=== PATIENT | female | born 1985 | race Caucasian/White ===

== ENCOUNTER 2020-08-08 14:01 | Outpatient (REF) | payer OTHER, BC, SELFPAY ==
--- NOTE | 2020-08-11 11:28 | MHC.AU.P13 ---
Adult Audiological Evaluation Date of Visit: 08/08/20 Reason for Appointment: History of childhood-onset hearing loss, diagnosed at 5 years old. Patient questions if there has been a change in hearing, as she has been routinely turning the volume up to the maximum on her hearing aids. Previous Hearing Test Results: At this clinic on 12/24/2016: Right- Mild sloping to profound sensorineural hearing loss Left- Mild sloping to severe and rising to moderate sensorinerual hearing loss Ear History: Ear Deformity: None Reported Recent Ear Pain: None Reported Family History of Hearing Loss?: Yes Recent Ear Infections: None Reported Hearing Instrument History- Right Ear: Screen Printing Loader Unloader: [employer] Model: AudeEt3arraf M70-13T Serial Number: [id number] Battery Size: 13 Warranty: 04/14/2020 Hearing Instrument History- Left Ear: Screen Printing Loader Unloader: Phonak Model: [employer] M70-13T Serial Number: [id number] Battery Size: 13 Warranty: 04/14/2020 Otoscopy: Right Ear: Unremarkable Left Ear: Unremarkable Tympanometry: Right Ear: Reduced Middle Ear Compliance (Type As) Left Ear: Normal Middle Ear System (Type A) Hearing Evaluation: Transducer(s) Used: Insert Earphones Method: Conventional Audiometry Stimuli Used: Pure Tones Right Ear: Description of Hearing: Mild sloping to profound sensorineural hearing loss Left Ear: Description of Hearing: Moderate sloping to severe and rising to moderate sensorinerual hearing loss Speech Recognition Threshold (SRT): Method Used: Recorded Lists Stimuli Used: Spondee Words Right Ear: 70 dBHL Left Ear: 55 dBHL Word Discrimination: Method: Recorded Lists Word Lists Used: NU-6 Right Ear: 44% at 85 dBHL Left Ear: 88% at 80 dBHL Most Comfortable Level (MCL): Right Ear: 85 dBHL Left Ear: 80 dBHL Comparison: Compared to the most recent evaluation: Thresholds have decreased in the right ear Recommendations: Recommendations: Audiological re-evaluation in one year. See Hearing Aid Evaluation report for more information. Diagnosis: Primary Diagnosis: H90.3 Bilateral Sensorineural Hearing Loss Secondary Diagnosis: N/A Services Performed: Services Performed: Comprehensive Audiological Evaluation (CPT 78727) Tympanometry (CPT 48297) Signature: Student/Clinical Fellow: No I have reviewed/agreed with student/fellow documentation: N/A Provider: Claytno Verdugo, CCC-A
--- NOTE | 2020-08-11 11:40 | MHC.AU.P13 ---
Hearing Aid Evaluation- Binaural Date of Visit: 08/08/20 Description of Hearing: Right: Mild sloping to profound sensorineural hearing loss Left: Moderate sloping to severe and rising to moderate sensorineural hearing loss Summary: Patient is a client of [facility]. Patient reports that she has been turning up the volume to the maximum on her current hearing aids every day. The results of today's test indicate that she has had a change in hearing. Her current hearing aids can no longer provide enough gain. New hearing aid options were discussed. Patient works in the mental health field. Patient reports that she uses the T coil for the phone at work, and would like that to still be in the new hearing aids. While she was here, slim tubes on her current hearing aids were replaced, and the programming was updated with today's results. She reports that the T coil seems to disconnect/reconnect frequently. Provided her magnets to try on the phone at work to see if it boosts the signal. Hearing Instrument Selection: Right Ear: Oyster Washer: [employer] Model: Ob Hospitalist Groupeo M70-13T Battery Size: 13 Color: P4 Snow Technician: 2P Type of Mold: Slim Tip Left Ear: Oyster Washer: Phonak Model: Ob Hospitalist Groupeo M70-13T Battery Size: 13 Color: P4 Snow Technician: 2P Type of Mold: Slim Tip Recommendations: Quote will be sent to [facility] [place] [facility]. If approved, materials will be ordered and patient will be contacted to schedule a hearing aid fitting. Diagnosis Code(s): Primary Diagnosis: H90.3 Bilateral Sensorineural Hearing Loss Services Performed: Hearing Aid Evaluation and Earmold: Hearing Aid Evaluation- Binaural Signature: Provider: Clayton Verdugo CCC-A
--- NOTE | 2020-08-11 12:34 | MHC.AU.P13 ---
Adult Audiological Evaluation Date of Visit: 08/08/20 Reason for Appointment: History of childhood-onset hearing loss, diagnosed at 5 years old. Patient questions if there has been a change in hearing, as she has been routinely turning the volume up to the maximum on her hearing aids. Previous Hearing Test Results: At this clinic on 12/24/2016: Right- Mild sloping to profound sensorineural hearing loss Left- Mild sloping to severe and rising to moderate sensorinerual hearing loss Ear History: Ear Deformity: None Reported Recent Ear Pain: None Reported Family History of Hearing Loss?: Yes Recent Ear Infections: None Reported Hearing Instrument History- Right Ear: Bolt Sorter: [employer] Model: [employer] B90-SP Serial Number: [id number] Battery Size: 13 Warranty: 04/14/2020 Service Plan: Hearing Instrument History- Left Ear: Bolt Sorter: Ipselexak Model: [employer] B90-SP Serial Number: [id number] Battery Size: 13 Warranty: 04/14/2020 Otoscopy: Right Ear: Unremarkable Left Ear: Unremarkable Tympanometry: Right Ear: Reduced Middle Ear Compliance (Type As) Left Ear: Normal Middle Ear System (Type A) Hearing Evaluation: Transducer(s) Used: Insert Earphones Method: Conventional Audiometry Stimuli Used: Pure Tones Right Ear: Description of Hearing: Mild sloping to profound sensorineural hearing loss Left Ear: Description of Hearing: Moderate sloping to severe and rising to moderate sensorinerual hearing loss Speech Recognition Threshold (SRT): Method Used: Recorded Lists Stimuli Used: Spondee Words Right Ear: 70 dBHL Left Ear: 55 dBHL Word Discrimination: Method: Recorded Lists Word Lists Used: NU-6 Right Ear: 44% at 85 dBHL Left Ear: 88% at 80 dBHL Most Comfortable Level (MCL): Right Ear: 85 dBHL Left Ear: 80 dBHL Comparison: Compared to the most recent evaluation: Thesholds have decreased in the right ear Recommendations: Recommendations: Audiological re-evaluation in one year. See Hearing Aid Evaluation report for more information. Diagnosis: Primary Diagnosis: H90.3 Bilateral Sensorineural Hearing Loss Services Performed: Services Performed: Comprehensive Audiological Evaluation (CPT 03035) Tympanometry (CPT 98921) Signature: Provider: Clayton Verdugo, CCC-A
== END 2020-08-08 14:02 | disposition home or self-care (01) ==
LOC: HO.SH 14:01
PROVIDERS: PCP Family Medicine; Visit Provider Family Medicine
DX: H90.3 Sensorineural hearing loss, bilateral (principal)
CPT/HCPCS: 92557; 92567; 92591

== ENCOUNTER 2020-11-18 08:16 | Outpatient (REF) | payer OTHER, SELFPAY ==
--- NOTE | 2020-11-23 09:35 | MHC.AU.P13 ---
Hearing Instrument Fitting- Adult- Binaural Date of Visit: 11/18/20 Hearing Instruments Dispensed: Right Ear: Tactical Air Defense Controller: Phonak Model: [employer]Med[employer]areeo M70-13T Serial Number: [id number] Repair Warranty: 11/21/2023 Loss and Damage Warranty: 11/21/2023 Battery Size: 13 Color: P4 Dietary Internship: 2P Type of Mold: Slim Tip Type of Wax Guard: Cerustop Left Ear: Tactical Air Defense Controller: Phonak Model: Audeo M70-13T Serial Number: [id number] RepairWarranty: 11/21/2023 Loss and Damage Warranty: 11/21/2023 Battery Size: 13 Color: P4 Dietary Internship: 2P Type of Mold: Slim Tip Type of Wax Guard: Cerustop Summary of Fitting: Feedback government program manager was run. Verifit performed. Target set at 110% at patient request. Patient feels the left hearing aid sounds muffled and not as loud as the right side. The left slim tip is quite long and curved. It is possible that it is directing sound against the canal wall. New impression was taken for the left ear and sent to [employer] for remake. Hearing aid care and maintenance discussed and practiced. Hearing aids were paired to patient's phone. Recommendations: Patient will be contacted for follow-up when the remade left slim tip has arrived. Diagnosis Code(s): Primary Diagnosis: H90.3 Bilateral Sensorineural Hearing Loss Signature: Provider: Clayton Verdugo, MALOU-A
== END 2020-11-18 08:17 | disposition home or self-care (01) ==
LOC: HO.HAP 08:16
PROVIDERS: Visit Provider Family Medicine
DX: Z46.1 Encounter for fitting and adjustment of hearing aid (principal); H90.3 Sensorineural hearing loss, bilateral
CPT/HCPCS: 92595; V5011; V5020; V5160; V5261; V5264; V5275

== ENCOUNTER 2021-01-04 15:31 | Outpatient (REF) | payer SELFPAY | END 2021-01-04 15:32 | disposition home or self-care (01) | LOC: HO.HAP 15:31 | PROVIDERS: Visit Provider Family Medicine | DX: Z13.89 Encounter for screening for other disorder (principal) ==

== ENCOUNTER 2021-01-25 05:36 | Emergency (ER) | payer BC, SELFPAY ==
--- NOTE | 2021-01-25 06:46 | ED.GENADULT ---
HPI - General Adult General Chief complaint: Headache Stated complaint: Migraine headache Time Seen by Provider: 01/25/21 06:27 Source: patient Mode of arrival: ambulatory Limitations: no limitations History of Present Illness HPI narrative: 35-year-old female who presents emergency department for evaluation of migraine headache. The patient states that she gets 1-2 migraines every 2 months. She states that around 9:00 p.m. last night she had a sudden onset of left-sided headache. She describes the sensation as if someone is pounding nails and the left side of her head. The pain is constant and is 10/10. The pain is associated with nausea, lightheadedness and shortness of breath. The patient has had multiple episodes of vomiting and states she has been vomiting every 20 minutes has not been able to hold down any food or fluid. She states that she normally uses Imitrex for her migraines but only gets 2 doses per month and used both of her doses already this month. She denied fever, chills, chest pain, abdominal pain, change in her bowel movements, frequency, urgency or dysuria. The patient has completed 2 doses of the Moderna COVID 19 vaccine with her last vaccine dose on January 11, 2021. Related Data Previous Rx's Medication Instructions Recorded metoclopramide HCl [Reglan] 10 mg PO Q6H PRN #14 tab 01/25/21 Allergies Allergy/AdvReac Type Severity Reaction Status Date / Time walnut Allergy Severe ANAPHYLAXIS Unverified 06/30/20 18:23 latex [LATEX] Allergy Mild RASH Unverified 06/30/20 18:23 prochlorperazine AdvReac Mild ANXIETY Unverified 06/30/20 18:23 [From COMPAZINE] Review of Systems Review of Systems: Yes all other systems are reviewed and are negative [facility] Past Medical History Attestation statement: The following information was validated with the patient. [facility] Narrative: Patient has a history of asthma, migraine headaches and hearing impairment. She is a former smoker wound stop smoking 1 year prior. She smoked for 5 years. She occasionally drinks alcohol. She occasionally uses marijuana. Social History Social History Smoking Status: Former smoker Use of substances other than those prescribed or required for medical reasons: No Advance Directives: No Physical Exam Vital Signs: Vital Signs: Last Vital Signs Temp 98.1 F 01/25/21 06:56 Pulse 60 01/25/21 09:35 Resp 18 01/25/21 09:35 BP 108/62 01/25/21 09:35 Pulse Ox 98 01/25/21 09:35 Body Mass Index 25.0 Const: General: cooperative, healthy appearing and in distress (Patient is dry heaving, in [id number] distress secondary to her heada) Orientation/consciousness: oriented to person and oriented to place Limitations: no limitations HENMT: Head: Yes normal to inspection, Yes normocephalic and Yes atraumatic Ears: external ears normal General nose exam: Normal external nose present Face and sinus: Yes normal facial exam Mouth: Normal oral and palatal mucosa present Throat: Yes posterior oropharynx normal Eyes: Periorbital: periorbital findings normal Eyelids: Yes eyelids normal Conjunctivae: conjunctivae normal Sclerae: sclerae normal Corneas: corneas normal Pupils: Equal, round and reactive pupils present Direct Ophthalmoscopy: normal light reflex Neck: Neck: Yes full ROM, Yes no lymphadenopathy, Yes no meningeal signs, Yes trachea midline and Yes supple Chest: Chest palpation & inspection: normal inspection of the chest and tenderness sternum (Moderate) Resp: Effort & Inspection: normal respiratory effort and able to speak in complete sentences Auscultation: clear to auscultation bilaterally Cardio: Rate: regular rate Rhythm: regular rhythm Heart sounds: S1 normal heart sound present, S2 normal heart sound present and no murmurs GI: Inspection: Yes normal to inspection Palpation (GI): Soft to palpation, nontender, no guarding, not rigid and No hepatosplenomegaly present : General: Yes no CVA tenderness Back/Spine/Pelvis: Back: no CVA tenderness Cervical Spine: normal cervical lordosis Thoracic/Lumbar Spine: thoracic and lumbar spine normal to inspection Skin: Lesions: no lesions Rashes: no rashes Wounds: no wounds Neuro: General: oriented to person, oriented to place and no meningeal signs Cranial nerves: Yes CN's II-XII intact bilaterally and Yes Equal, round and reactive pupils present Cognition (Neuro): normal cognition Motor exam (neuro): 5/5 motor strength present throughout Extrem: General: Yes normal to inspection and Yes full ROM Psych: Appearance: well kempt Mental Status: mental status grossly normal Speech and movement: Normal speech and movement present Affect: normal affect Attitude: cooperative Thought process: Normal thought process present Thought content: Normal thought content present Course Course Course Narrative: 35-year-old female with a history of migraine headaches who presents emergency department for evaluation of a migraine that began last night at 9:00 p.m.. The patient's examination was unremarkable. The patient was ordered to get Imitrex 6 mg IM, Reglan and 10 mg IV and Benadryl 50 mg IV. The patient had minimal relief with these medications and required a dose of morphine 4 mg IV. Patient states she is feeling significantly better. Patient will be discharged home with a prescription for Reglan and 10 mg every 6-8 hours as needed for nausea or vomiting. She was advised to follow-up with Dr. pruitt for symptoms get worse. Discharge Plan Discharge Clinical Impression: Migraine Qualifiers: Migraine type: without aura Status migrainosus presence: without status migrainosus Intractability: not intractable Qualified Code(s): G43.009 - Migraine without aura, not intractable, without status migrainosus Nausea & vomiting Qualifiers: Vomiting type: unspecified Vomiting Intractability: non-intractable Qualified Code(s): R11.2 - Nausea with vomiting, unspecified Patient Disposition: Home, Self-Care Instructions: Migraine Headache (ED) Additional Instructions: You received Reglan, Benadryl, Imitrex and morphine here in the emergency department. For your migraine headaches, nausea and vomiting take Reglan (metoclopramide) 10 mg pills, 1 pill every 6-8 hours as needed. When you take this medication you should also take Benadryl 25 mg pills, 2 pills. These medications will make you sleepy. Do not drive or work when you take these medications. You should try to lie down in a dark quiet room to see if this helps relieve your migraine headaches. Follow-up with your doctor in 2 days. Please return to the emergency department if your symptoms get worse or if you develop any symptoms that are concerning to you. Prescriptions: New metoclopramide HCl [Reglan] 10 mg tablet 10 mg PO Q6H PRN (Reason: nausea and vomiting) Qty: 14 RF: 0
[2021-01-25 06:56] VITALS: BP 152/99; PULSE 68; RESP 16; TEMP 36.7; O2SAT 98; BMI 25.0
[2021-01-25] MEDS: Metoclopramide HCl 10 MG/2 ML VIAL IVPUSH (07:31)
[2021-01-25] MEDS: 0.9 % Sodium Chloride 1,000 ML 999 ML IV (07:32)
[2021-01-25] MEDS: diphenhydrAMINE HCL 50 MG/ML VIAL IVPUSH (07:32)
--- NOTE | 2021-01-25 08:32 | PC.NURSE ---
pt reports feeling a little better after the medication, pain at 6/10, no vomiting noticed at this time
[2021-01-25] MEDS: Morphine Sulfate 4 MG/ML CARTRIDGE IVPUSH (09:09)
[2021-01-25 09:35] VITALS: BP 108/62; PULSE 60; RESP 18; O2SAT 98
--- NOTE | 2021-01-25 09:45 | PC.NURSE ---
PT REPORTS FEELING BETTER, PAIN AT 3/10 AT THIS TIME
== END 2021-01-25 10:48 | disposition home or self-care (01) ==
PROVIDERS: Emergency Provider Emergency Medicine Emergency Medical Services; PCP Family Medicine
DX: G43.009 Migraine without aura, not intractable, without status migrainosus (principal); R11.2 Nausea with vomiting, unspecified
CPT/HCPCS: 96361; 96372; 96374; 96375; 99284; 99285; J1200; J2270; J2765; J3030

== ENCOUNTER 2022-02-28 11:05 | Outpatient (REF) | payer SELFPAY ==
--- NOTE | 2022-02-28 12:48 | MHC.AU.HFU ---
Hearing Instrument Follow-Up- Binaural Date of Visit: 02/28/22 Right Ear: Change Management Facilitator: Phonak Model: Audeo M70-13T Serial Number: [id number] Battery Size: 13 Eeg Tech: 2P Dispensed By: [facility] Left Ear: Change Management Facilitator: Phonak Model: Audeo M70-13T Serial Number: [id number] Battery Size: 13 Eeg Tech: 2P Dispensed By: [facility] Follow-Up Summary: Patient reports the mold on her right hearing aid is broken. There is a large piece missing, which is causing discomfort and feedback. Hearing aids and molds were inspected. It was discovered that there is also a small piece broken off the left mold. The hearing aids are otherwise working well. Discussed options, which included getting a copy of her current molds from [employer], or changing the type of mold. We decided on soft, silicone canal molds from [employer], as they should be more durable. Impressions were taken bilaterally without incident and will be kept in the Hold drawer. Patient reports she has been in touch with her counselor at [facility]. A pal quote for new molds will be sent to [facility]. Recommendations: Patient will be contacted to update whether or not [facility] approves new molds. Diagnosis Code(s): Primary Diagnosis: H90.3 Bilateral Sensorineural Hearing Loss Signature: Provider: Clayton Verdugo, [facility]
== END 2022-02-28 11:06 | disposition home or self-care (01) ==
LOC: HO.HAP 11:05
PROVIDERS: Visit Provider Family Medicine
DX: Z13.89 Encounter for screening for other disorder (principal)

== ENCOUNTER 2024-12-05 15:26 | Observation (INO) | payer BC, SELFPAY ==
[2024-12-05] VITALS (12 sets, daily range): BP systolic 89–140; BP diastolic 67–105; PULSE 105–224; RESP 16–22; TEMP 36.6; O2SAT 94–100; BMI 34.0
--- NOTE | ~2024-12-05 | XR_ITS ---
CLINICAL HISTORY: chest pain 1 view chest x-ray Comparison: None Findings: The lungs are clear. Heart size is normal. No acute fracture. IMPRESSION: 1. No acute findings. This document has been electronically signed by: Claudine Garcia MD on 12/05/2024 16:53:40
--- NOTE | 2024-12-05 15:28 | ECG_ITS ---
Test Reason : A FIB Blood Pressure : */* mmHG Vent. Rate : 184 BPM Atrial Rate : * BPM P-R Int : * ms QRS Dur : 70 ms QT Int : 268 ms P-R-T Axes : * 39 -42 degrees QTcB Int : 469 ms Atrial fibrillation with rapid ventricular response Nonspecific ST and T wave abnormality Abnormal ECG When compared with ECG of 04-Nov-2014 14:57, Atrial fibrillation has replaced Sinus rhythm Vent. rate has increased by 124 bpm Referred By: Shalini Lam Electronically Signed By: POORNIMA VILLATORO
--- NOTE | 2024-12-05 15:29 | ED.GENADULT ---
HPI - General Adult General Chief complaint: Arrhythmia/Palpitations Stated complaint: heart beating fast/sob Time Seen by Provider: 12/05/24 15:59 Source: patient Mode of arrival: ambulatory Limitations: no limitations History of Present Illness ED Provider: DR. Gamez HPI narrative: 39-year-old female otherwise healthy came in for evaluation of palpitation and shortness of breath. Found to be in rapid narrow complex tachycardia at 170s, patient otherwise hemodynamically stable complaining of subjective shortness of breath but no apparent respiratory distress, patient was moved to 12 was given Related Data Previous Rx's ?Medication ?Instructions ?Recorded metoclopramide HCl 10 mg tablet 10 mg PO Q6H PRN nausea and 01/25/21 (Reglan) vomiting #14 tabs Allergies Allergy/AdvReac Type Severity Reaction Status Date / Time walnut Allergy Severe ANAPHYLAXIS Verified 12/05/24 15:33 latex [LATEX] Allergy Mild RASH Verified 12/05/24 15:33 prochlorperazine AdvReac Mild ANXIETY Verified 12/05/24 15:33 [From COMPAZINE] FOR[facility]LY [facility] Social History Social History Alcohol intake: current Alcohol intake frequency: holidays/special occasions only Alcohol type: wine Smoked in Last 30 Days: Yes Substance Use Type: Marijuana Substance Use Frequency: Chronic Longstanding Last Used Substance: Just Prior to Admission Advance Directives: No Advance Directives Information Provided: Yes Do you have a plan to hurt others: No Plan Physical Exam ED Vital Signs: Vital Signs - 24 hr 12/05/24 15:30 12/05/24 15:43 12/05/24 16:29 Temperature 97.8 F Pulse Rate 105 H 224 H 176 H Pulse Rate [Monitor] Respiratory Rate 18 16 Blood Pressure 128/91 H 136/105 H 140/86 H Pulse Oximetry 94 99 Oxygen Delivery Method Room Air Room Air Oxygen Flow Rate 12/05/24 16:30 12/05/24 16:31 12/05/24 16:53 Temperature Pulse Rate 174 H 172 H 135 H Pulse Rate [Monitor] Respiratory Rate 22 H 18 Blood Pressure 140/86 H 103/78 97/67 Pulse Oximetry 98 97 Oxygen Delivery Method Nasal Cannula Nasal Cannula Oxygen Flow Rate 2 2 12/05/24 16:56 12/05/24 17:04 12/05/24 17:55 Temperature Pulse Rate 120 H 130 H 132 H Pulse Rate [Monitor] Respiratory Rate 20 16 18 Blood Pressure 89/71 L 99/79 118/90 H Pulse Oximetry 100 100 Oxygen Delivery Method Nasal Cannula Nasal Cannula Nasal Cannula Oxygen Flow Rate 2 2 2 12/05/24 18:03 12/05/24 18:43 12/05/24 19:16 Temperature Pulse Rate 146 H 157 H Pulse Rate [Monitor] 135 H Respiratory Rate 20 22 H Blood Pressure 112/71 124/77 Pulse Oximetry 99 97 Oxygen Delivery Method Nasal Cannula Room Air Oxygen Flow Rate 2 BMI result Body Mass Index 34.0 Vital signs have been reviewed and appear to be correct. Blood pressure elevated. Rapid heart rate, Respiratory rate normal. Temperature normal. Oxygen saturation normal. Appearance: Alert. Oriented X3. No acute distress. Head: Normal external exam. Normocephalic. Atraumatic. No Ocampo signs noted. No raccoon eyes noted Eyes: PERRLA. EOMI. Conjunctiva and sclera normal. Eyelids normal. ENT: TM's Normal. Pharynx normal. Uvula midline. Moist mucous membranes. No trismus noted. No drooling noted. No muffled voice noted. Neck: Normal inspection. Neck supple. FROM. No adenopathy. Thyroid Normal. No meningeal signs. No neck mass noted. CVS: Normal heart rate and rhythm. Heart sound normal. No murmurs noted. Pulses normal throughout. Respiratory: No respiratory distress. Painless inspiration. Breath sounds normal. No wheezes/rales/rhonchi noted. Chest nontender. No accessory muscle usage noted or decreased air movement noted. Abdomen: Soft and nontender. Bowel sounds normal in all 4 quadrants. No distention noted. No organomegaly noted. No visible injury noted. Back: No CVA tenderness. Full range of motion noted. Skin: Skin warm and dry. Normal skin color. Normal skin turgor. No rashes/lesions/lacerations noted. Extremities: No lower extremity edema. Extremities exhibit normal range of motion. Extremities nontender. Neuro: Oriented X 3. Cranial nerve exam: II-XII are grossly intact No motor deficit. No sensory deficit. Reflexes normal. Course Course Course Narrative: RME performed by Shalini Lam PA-C. Patient is a 39 year old assigned female at presenting to the emergency department with heart racing. Patient states her heart rate is very fast. Detailed physical exam and review of systems are deferred to the orthotic/prosthetic clinician. EKG, labs, imaging, and swabs ordered. Patient placed back in the waiting room pending room availability and results. Reevaluation(s) Reevaluation #1: New onset rapid atrial fibrillation. Initially patient had adenosine IV 6 -12-12 mg IV with transient control of heart rate. Patient was started on IV Cardizem and Cardizem drip, that was discontinued after patient started to have hypotension. Patient was given a dose of 5 mg of metoprolol IV with 1 dose of 0.25 IV digoxin. The case was discussed with Dr. Greene who recommended to give 300 mg of flecainide patient's heart rate still in the 150s otherwise blood pressure is stable, patient hemodynamically stable case discussed with Dr. Gunn who will admit the patient for further cardiology evaluation. Time: 19:36 Reevaluation #2: Patient now turn into normal sinus rhythm. Confirmed by repeat EKG. Time: 20:31 Medications Administered Generic Name Dose Route Start Last Admin Trade Name Freq PRN Reason Stop Dose Admin Diltiazem HCl 125 mg/ Sodium 125 mls @ 0 mls/hr 12/05/24 16:00 12/05/24 16:32 Chloride IVCONT 0 mg/hr .Q0M BONNIE 0 mls/hr Titration Protocol Per Protocol Discontinued Medications Generic Name Dose Route Start Last Admin Trade Name Freq PRN Reason Stop Dose Admin Adenosine 6 mg 12/05/24 15:59 12/05/24 15:45 Adenosine 6 Mg/2 Ml Vial IVPUSH 12/05/24 16:00 6 mg STAT STA Administration Adenosine 12 mg 12/05/24 15:59 12/05/24 15:45 Adenosine 6 Mg/2 Ml Vial IVPUSH 12/05/24 16:00 12 mg ONCE ONE Administration Adenosine 12 mg 12/05/24 15:59 12/05/24 16:00 Adenosine 6 Mg/2 Ml Vial IVPUSH 12/05/24 16:00 12 mg ONCE ONE Administration Digoxin 0.25 mg 12/05/24 16:35 12/05/24 16:40 Digoxin 0.5 Mg/2 Ml Ampul IVPUSH 12/05/24 16:36 0.25 mg ONCE ONE Administration Protocol Diltiazem HCl 20 mg 12/05/24 15:59 12/05/24 16:29 Diltiazem Hcl 50 Mg/10 Ml Vial IVPUSH 12/05/24 16:00 20 mg STAT STA Administration Flecainide Acetate 300 mg 12/05/24 17:04 12/05/24 18:42 Flecainide Acetate 50 Mg Tablet PO 12/05/24 17:05 300 mg ONCE ONE Administration Sodium Chloride 1,000 mls @ 999 mls/hr 12/05/24 16:36 12/05/24 17:55 Ns IV 12/05/24 17:36 Infused .Q1H1M ONE Infusion Sodium Chloride 1,000 mls @ 999 mls/hr 12/05/24 17:05 12/05/24 18:41 Ns IV 12/05/24 18:05 Not Given .Q1H1M ONE Metoprolol Tartrate 5 mg 12/05/24 16:35 12/05/24 16:40 Metoprolol Tartrate 5 Mg/5 Ml Vial IVPUSH 12/05/24 16:36 5 mg ONCE ONE Administration Protocol Medical Decision Making Differential Diagnosis Differential Diagnoses: The differential diagnosis associated with the presentation includes (SVT, narrow complex tachycardia, new onset AFib, ACS, electrolyte derangement, severe anemia, , ACS, CHF.) Admission/Observation Consideration of admission/observation: Escalation of care including admission/observation considered Consult Healthcare Provider Management of the patient was discussed with: Hospitalist (Dr. Gunn) and Compress Trucker (Dr. Greene) Lab Data MDM Lab Attestation statement: I reviewed the patient's lab results. 12/05/24 16:22 12/05/24 16:22 Labs: Lab Results 12/05/24 12/05/24 Range/Units 16:03 16:22 WBC 9.9 (4.8-10.8) X10*3/uL RBC 4.83 (4.20-5.50) X10*6/uL Hgb 15.5 (12.0-16.0) g/dl Hct 44.3 (37.0-47.0) % MCV 91.7 (80.0-98.0) fL MCH 32.1 (27.0-33.0) pg MCHC 35.0 (31.0-35.0) g/dl RDW 12.1 (11.0-16.0) % Plt Count 396 (160-400) X10*3/uL MPV 9.5 (9.4-12.3) fL Immature Gran % (Auto) 0.3 (0.0-0.4) % Neut % (Auto) 83.1 H (45-73) % Lymph % (Auto) 13.0 L (20-40) % [place] % (Auto) 2.7 (2-11) % Eos % (Auto) 0.3 (0-4) % Baso % (Auto) 0.6 (0-2) % Lymph # (Auto) 1.3 (1.2-4.9) X10*3/uL [place] # (Auto) 0.3 (0.1-1.2) X10*3/uL Eos # (Auto) 0.0 (0.0-0.4) X10*3/uL Baso # (Auto) 0.1 (0.0-0.2) X10*3/uL Abs Immat Gran (auto) 0.03 (0.00-0.03) X10*3/uL Absolute Neuts (auto) 8.2 (2.0-8.3) x10*3/uL Absolute Nucleated RBC 0.000 (0.0-0.012) X10*3/uL Nucleated RBC % (auto) 0.0 (0.0-0.2) /100WBC PT 10.7 L (10.9-12.4) SEC INR 0.9 (0.9-1.1) APTT 29.9 (26.0-36.8) SEC Sodium 139 (135-145) mmol/L Potassium 3.8 (3.3-5.1) mmol/L Chloride 104 (96-108) mmol/L Carbon Dioxide 13 L (22-29) mmol/L Anion Gap 26 H (12-20) BUN 13 (9-16) mg/dL Creatinine 0.80 (0.5-1.4) mg/dL Estim Creat Clear Calc 102.4 Estimated GFR > 60 POC Glucose 133 H (60-115) mg/dL Random Glucose 112 (60-115) mg/dL Calcium 9.4 (8.4-10.2) mg/dL Magnesium 1.7 (1.6-2.6) mg/dL Total Bilirubin 0.4 (0.0-1.0) mg/dL AST 70 H (5-31) U/L ALT 89 H (0-31) U/L Alkaline Phosphatase 70 (39-117) U/L Troponin I High Sens 15.5 (<3.5-17.0) ng/L B-Natriuretic Peptide < 10 (<100) pg/mL Total Protein 8.4 H (6.5-8.0) g/dL Albumin 4.6 (3.5-5.0) g/dL Beta HCG, Quant < 2 mIU/mL Influenza Type A (PCR) NEGATIVE (Negative) Influenza Type B (PCR) NEGATIVE (Negative) RSV RNA Qual (PCR) NEGATIVE (Negative) SARS-CoV-2 RNA (RT-PCR) NEGATIVE (Negative) Independent Interpretation I performed an independent interpretation of an: Plain X-Ray (Chest: No acute findings) Radiology Impression Discussion of test interpretation with radiology: I have reviewed the radiologist's reading. Critical Care Time Critical Care Time Critical Care Time: Yes Total Critical Care Time: 60 Attestation: The patient was critically ill with a high probability of imminent or life-threatening deterioration. I spent greater than 30 minutes of discontinuous time evaluating the patient, delivering critical care at the bedside, discussing evaluating data with consultants. Critical care time does not include time spent performing separately billable procedures or teaching. Time spent performing critical care was 60 minutes. Discharge Plan Discharge Clinical Impression: Atrial fibrillation with rapid ventricular response Patient Disposition: Admitted As Inpatient Print Language: Mexican
[2024-12-05] MEDS: Adenosine 6 MG/2 ML VIAL 12 MG IVPUSH ×2 (15:45→16:00)
[2024-12-05] MEDS: Adenosine 6 MG/2 ML VIAL IVPUSH (15:45)
[2024-12-05 16:06] LABS: Glucose, Whole Blood 133 mg/dL (60-115)
--- NOTE | 2024-12-05 16:12 | MHC.EDTECH ---
poc notified to sagar 133
[2024-12-05 16:26] LABS: MANUAL DIFF FLAG NO
[2024-12-05] MEDS: dilTIAZem HCL 50 MG/10 ML VIAL 20 MG IVPUSH (16:29)
[2024-12-05] MEDS: dilTIAZem HCL 125 MG in 0.9 % Sodium Chloride 100 ML 10 MG IVCONT (16:30)
[2024-12-05] MEDS: 0.9 % Sodium Chloride 1,000 ML 999 ML IV (16:40)
[2024-12-05] MEDS: Digoxin 0.5 MG/2 ML AMPUL 0.25 MG IVPUSH (16:40)
[2024-12-05] MEDS: Metoprolol Tartrate 5 MG/5 ML VIAL IVPUSH (16:40)
[2024-12-05 16:51] LABS: B Type Natriuretic Peptide < 10 pg/mL (<100)
[2024-12-05 16:52] LABS: Troponin-I High Sensitivity 15.5 ng/L (<3.5-17.0)
[2024-12-05 16:53] LABS: Alanine Aminotransferase 89 U/L (0-31); Albumin Level 4.6 g/dL (3.5-5.0); Alkaline Phosphatase 70 U/L (39-117); Anion Gap 26 (12-20); Aspartate Amino Transferase 70 U/L (5-31); Bilirubin Total 0.4 mg/dL (0.0-1.0); Blood Urea Nitrogen 13 mg/dL (9-16); Calcium 9.4 mg/dL (8.4-10.2); Carbon Dioxide 13 mmol/L (22-29); Chloride 104 mmol/L (96-108); Creatinine Clr Calc Pharmacy 102.4; Estimated Glomerular Filt Rate > 60; Glucose Random 112 mg/dL (60-115); HCG Quantitative < 2 mIU/mL; Magnesium 1.7 mg/dL (1.6-2.6); Potassium 3.8 mmol/L (3.3-5.1); Sodium 139 mmol/L (135-145); Total Protein 8.4 g/dL (6.5-8.0)
[2024-12-05 16:55] LABS: Basophils Absolute Auto 0.1 X10*3/uL (0.0-0.2); Basophils Percent Auto 0.6 % (0-2); Eosinophils Percent Auto 0.3 % (0-4); Hematocrit 44.3 % (37.0-47.0); Hemoglobin 15.5 g/dl (12.0-16.0); Imm Gran Abs Auto 0.03 X10*3/uL (0.00-0.03); Imm Gran Pct Auto 0.3 % (0.0-0.4); Lymphocytes Absolute Auto 1.3 X10*3/uL (1.2-4.9); Mean Corpuscular Hemoglobin 32.1 pg (27.0-33.0); Mean Corpuscular Volume 91.7 fL (80.0-98.0); Mean Platelet Volume 9.5 fL (9.4-12.3); Monocytes Absolute Auto 0.3 X10*3/uL (0.1-1.2); Monocytes Percent Auto 2.7 % (2-11); Neutrophils Absolute Auto 8.2 x10*3/uL (2.0-8.3); Neutrophils Percent Auto 83.1 % (45-73); Platelet Count 396 X10*3/uL (160-400); Red Blood Count 4.83 X10*6/uL (4.20-5.50); Red Cell Distribution Width 12.1 % (11.0-16.0); White Blood Count 9.9 X10*3/uL (4.8-10.8)
[2024-12-05 17:06] LABS: INTERNATIONAL NORM RATIO 0.9 (0.9-1.1); Prothrombin Time 10.7 SEC (10.9-12.4)
[2024-12-05 17:09] LABS: Partial Thromboplastin Time 29.9 SEC (26.0-36.8)
[2024-12-05 17:12] LABS: Influenza A PCR NEGATIVE (Negative); Influenza B PCR NEGATIVE (Negative); Resp Syncy Virus RNA Qual PCR NEGATIVE (Negative); SARS COV2 PCR INHOUSE NEGATIVE (Negative)
--- NOTE | 2024-12-05 18:09 | PC.NURSE ---
Back documentation, Pt came via personal car for her heart racing, upon assessment pt HR from 130-250s pt is diaphoretic, pale, reporting SOB. MD at bedside, see mar for initial medications given, Pt HR has not respnded at this time to medications given, awaiting pharm to bring flecainide at this time, Pt BP did get soft, but has since improved with IVF. PT remains A/ox4, reporting no chest pain or palpitations at this time. She is resting comfortably, she is on O2 for comfort. Call marrufo within reach, pads remain on patient and code cart remain at bedside for precautions. Extensive education and emotional support provided to patient during and after all medication administration and following to help ease her anxiety, and allow for her to ask questions.
[2024-12-05] MEDS: Flecainide Acetate 50 MG TABLET 300 MG PO (18:42)
--- NOTE | 2024-12-05 20:47 | ECG_ITS ---
Test Reason : REPEAT Blood Pressure : */* mmHG Vent. Rate : 90 BPM Atrial Rate : 90 BPM P-R Int : 198 ms QRS Dur : 100 ms QT Int : 390 ms P-R-T Axes : 55 33 13 degrees QTcB Int : 477 ms Normal sinus rhythm Normal ECG When compared with ECG of 05-Dec-2024 15:53, Sinus rhythm has replaced Atrial fibrillation Referred By: Babak Gamez Electronically Signed By: POORNIMA VILLATORO
--- NOTE | 2024-12-05 21:35 | P.HPHOSP_ITS ---
History of Present Illness Date of Service: 12/05/24 Attending physician on admission: Jamie [facility] Chief Complaint: palpitations Patient is a 39-year-old female with a medical history significant for mild intermittent asthma and migraines, who presented to the ED due to palpitations. When she arrived to the ED her heart rate was about 130, which increased to 224 shortly after. She denies any precipitating events including any drug use or alcohol. She states that she did take a triptan tablet earlier today for her migraines but this is not new for her. She denies any recent illness. She does vape nicotine and will drink alcohol socially about 2-3 times per week. She also smokes marijuana on a regular basis. She does complain of a headache but denies any shortness of breath, nausea, vomiting, abdominal pain or urinary symptoms. She was treated with adenosine, 03/25/12, Cardizem drip but could not tolerate due to hypotension therefore was discontinued and she was given metoprolol 5 mg IV and digoxin 0.125 mg. Ultimately Cardiology recommended flecainide 300 mg. She converted back to normal sinus rhythm, we will be admitted for observation. Review of Systems 2 Constitutional: Constitutional: Denies body ache(s), Denies chills, Denies fatigue, Denies fever(s) and Reports headache(s) Eyes: Eyes: Denies change in vision and Denies photophobia ENT: Reports headache(s), Denies nasal congestion, Denies nasal discharge and Denies sore throat Cardiovascular: Cardiovascular: Denies chest pain, Reports rapid heart rate, Denies leg edema, Denies lightheadedness and Denies dyspnea Respiratory: Respiratory: Denies chest congestion, Denies cough, Denies dyspnea and Denies wheezing Gastrointestinal: Gastrointestinal: Denies diarrhea, Denies nausea and Denies vomiting Genitourinary: Genitourinary: Denies hematuria, Denies dysuria and Denies urinary urgency Musculoskeletal: Musculoskeletal: Denies myalgias Integumentary/Breasts: Skin/Breast: Denies rash Neurologic: Denies confusion and Reports headache(s) Psychiatric: Psychiatric: Denies confusion Endocrine: Endocrine: Denies fatigue Hematologic/Lymphatic: Hematologic/Lymphatic: Denies easy bleeding and Denies easy bruising Allergic/Immunologic: Allergic/Immunologic: Denies wheezing [facility] Medical History (Updated 12/05/24 @ 21:45 by Ai Frank PA-C) Mild intermittent asthma Migraines Functional capacity: independent ambulation Social History Alcohol intake: current Alcohol intake frequency: holidays/special occasions only Alcohol type: wine Smoked in Last 30 Days: Yes Substance Use Type: Marijuana Substance Use Frequency: Chronic Longstanding Last Used Substance: Just Prior to Admission Advance Directives: No Advance Directives Information Provided: Yes Do you have a plan to hurt others: No Plan Narrative: Vapes nicotine, occasional alcohol 2-3 times per week socially, smokes marijuana Meds Allergies Allergy/AdvReac Type Severity Reaction Status Date / Time walnut Allergy Severe ANAPHYLAXIS Verified 12/05/24 15:33 latex [LATEX] Allergy Mild RASH Verified 12/05/24 15:33 prochlorperazine AdvReac Mild ANXIETY Verified 12/05/24 15:33 [From COMPAZINE] Active Medications: Current Medications Diltiazem HCl 125 mg/ Sodium (Chloride) 125 mls @ 0 mls/hr IVCONT .Q0M BONNIE; Protocol Last Titration: 12/05/24 16:32 Dose: 0 mg/hr, 0 mls/hr Physical Exam 2 Vital Signs and Narrative: Vital Signs: Last Vital Signs Temp 97.8 F 12/05/24 15:30 Pulse 157 H 12/05/24 19:16 Resp 22 H 12/05/24 19:16 BP 124/77 12/05/24 19:16 Pulse Ox 97 12/05/24 19:16 O2 Del Method Room Air 12/05/24 19:16 O2 Flow Rate 2 12/05/24 18:43 BMI result Body Mass Index 34.0 General: AOx3, no acute distress Resp: CTA bilaterally CVS: S1, S2, RRR GI: +BS, NT, no distention Skin: Warm, dry Neuro: Cranial nerves II-XII grossly intact bilaterally. Motor grossly intact bilaterally Extremities: No LE edema Psych: Appropriate affect Const: General: No confusion Orientation/consciousness: No confusion Eyes: Direct Ophthalmoscopy: No photophobia Neuro: General: No confusion Results Labs 12/05/24 16:22 12/05/24 16:22 Labs: Laboratory Results - last 24 hr 12/05/24 12/05/24 16:03 16:22 MCV 91.7 MCH 32.1 MCHC 35.0 RDW 12.1 Plt Count 396 MPV 9.5 Immature Gran % (Auto) 0.3 Neut % (Auto) 83.1 H Lymph % (Auto) 13.0 L [place] % (Auto) 2.7 Eos % (Auto) 0.3 Baso % (Auto) 0.6 Lymph # (Auto) 1.3 [place] # (Auto) 0.3 Eos # (Auto) 0.0 Baso # (Auto) 0.1 Abs Immat Gran (auto) 0.03 Absolute Neuts (auto) 8.2 Absolute Nucleated RBC 0.000 Nucleated RBC % (auto) 0.0 PT 10.7 L INR 0.9 APTT 29.9 Anion Gap 26 H Estim Creat Clear Calc 102.4 Estimated GFR > 60 POC Glucose 133 H Random Glucose 112 Calcium 9.4 Magnesium 1.7 Total Bilirubin 0.4 AST 70 H ALT 89 H Alkaline Phosphatase 70 B-Natriuretic Peptide < 10 Total Protein 8.4 H Albumin 4.6 Beta HCG, Quant < 2 Influenza Type A (PCR) NEGATIVE Influenza Type B (PCR) NEGATIVE RSV RNA Qual (PCR) NEGATIVE SARS-CoV-2 RNA (RT-PCR) NEGATIVE Assessment and Plan (1) Atrial fibrillation with rapid ventricular response: Status: Acute (2) Obesity (BMI 30-39.9): Status: Chronic (3) Tobacco use disorder: Status: Chronic Plan Patient is a 39-year-old female with a medical history significant for mild intermittent asthma and migraines, who presented to the ED due to palpitations. And to be in rapid AFib with RVR with heart rate up to 220. She was treated with adenosine, 03/25/12, Cardizem drip but could not tolerate due to hypotension therefore was discontinued and she was given metoprolol 5 mg IV and digoxin 0.125 mg. Ultimately Cardiology recommended flecainide 300 mg. She converted back to normal sinus rhythm, we will be admitted for observation. rapid a fib with RVR, now converted - HR up to 220, was 130 upon arrival - treated with: adenosine, 03/25/12, Cardizem drip but could not tolerate due to hypotension therefore was discontinued and she was given metoprolol 5 mg IV and digoxin 0.125 mg, and flecanice 300mg - 2L NS in ED - admit for observation on tele - COVID/flu/RSV negative - CXR negative - no evidence of infectious process - cardiology consult mild intermittent asthma, no acute exacerbation - albuterol PRN migraines, none currently - tylenol PRN tobacco use - smoking cessation encouraged obesity - BMI 34.0 - weight loss encouraged full code VTE prophy: lovenox Patient with rapid AFib with RVR, now converted, requiring admission for observation overnight in Cardiology consultation. Quality Stroke Does the patient have a stroke diagnosis?: No VTE Prior VTE?: No VTE Risk Level:: Medical - moderate - high VTE Device Contraindication: Treatment Not Indicated VTE Drug Contraindication: N/A - Med Ordered
--- NOTE | 2024-12-05 22:30 | PC.NURSE ---
Patient is alert and oriented x4, VSS. HR 90-97, NSR. Patient denies chest pain/heart palpitations/shortness of breath. Patient currently resting in a stretcher bed, talking on her phone, call marrufo in patient's reach. Plan of care ongoing.
[2024-12-05 22:34] LABS: TSH reflex Free T4 0.37 uIU/mL (0.32-4.0)
[2024-12-05] MEDS: Enoxaparin Sodium 40 MG/0.4 ML SYRINGE SUBCUT (23:09)
[2024-12-06 00:48] LABS: Lactic Acid 0.7 mmol/L (0.5-2.0)
[2024-12-06 00:49] LABS: Anion Gap 15 (12-20); Blood Urea Nitrogen 11 mg/dL (9-16); Calcium 8.6 mg/dL (8.4-10.2); Carbon Dioxide 20 mmol/L (22-29); Chloride 103 mmol/L (96-108); Creatinine Clr Calc Pharmacy 113.8; Estimated Glomerular Filt Rate > 60; Glucose Random 80 mg/dL (60-115); Magnesium 1.7 mg/dL (1.6-2.6); Potassium 3.6 mmol/L (3.3-5.1); Sodium 134 mmol/L (135-145)
[2024-12-06 01:06] LABS: MANUAL DIFF FLAG NO
[2024-12-06 01:08] LABS: Basophils Percent Auto 0.5 % (0-2); Eosinophils Absolute Auto 0.2 X10*3/uL (0.0-0.4); Eosinophils Percent Auto 2.1 % (0-4); Hematocrit 34.9 % (37.0-47.0); Hemoglobin 12.2 g/dl (12.0-16.0); Imm Gran Abs Auto 0.02 X10*3/uL (0.00-0.03); Imm Gran Pct Auto 0.3 % (0.0-0.4); Lymphocytes Absolute Auto 2.1 X10*3/uL (1.2-4.9); Lymphocytes Percent Auto 27.5 % (20-40); Mean Corpuscular Volume 91.6 fL (80.0-98.0); Mean Platelet Volume 9.1 fL (9.4-12.3); Monocytes Absolute Auto 0.5 X10*3/uL (0.1-1.2); Monocytes Percent Auto 6.8 % (2-11); Neutrophils Absolute Auto 4.7 x10*3/uL (2.0-8.3); Neutrophils Percent Auto 62.8 % (45-73); Platelet Count 307 X10*3/uL (160-400); Red Blood Count 3.81 X10*6/uL (4.20-5.50); White Blood Count 7.6 X10*3/uL (4.8-10.8)
[2024-12-06] MEDS: LORazepam 0.5 MG TABLET PO (01:09)
[2024-12-06] MEDS: 0.9 % Sodium Chloride Flush 3 ML SYRINGE IVFLUSH (01:10)
[2024-12-06 01:11] VITALS: BP 113/76; PULSE 91; RESP 18; O2SAT 97
[2024-12-06] MEDS: Lactated Ringers 1,000 ML 150 ML IVCONT ×2 (01:27→08:28)
[2024-12-06] MEDS: Acetaminophen 325 MG TABLET 975 MG PO (04:44)
--- NOTE | 2024-12-06 07:22 | HO.PM.IMPN ---
Subjective Subjective Date of Service: 12/06/24 Interval History: 39 yo f evaluated at the bedside this AM. Feeling well. No complaints. Denies CP, SOB, fevers, chills, nausae, vomiting, abd pain, headache vision changes, dizziness, weakness. Review of Systems Review of Systems: Yes all other systems are reviewed and are negative Physical Exam Vital Signs: Vital Signs: Last Vital Signs Temp 97.8 F 12/05/24 15:30 Pulse 91 12/06/24 01:11 Resp 18 12/06/24 01:11 BP 113/76 12/06/24 01:11 Pulse Ox 97 12/06/24 01:11 O2 Del Method Room Air 12/06/24 01:11 O2 Flow Rate 2 12/05/24 18:43 BMI result Body Mass Index 34.0 Appearance: Alert.? Oriented X3.? No acute distress.? Head: Normocephalic, atraumatic, no step-offs or deformities Eyes: Pupils equal, round and reactive to light.? Neck: Normal inspection.? Neck supple.? CVS: Normal heart rate and rhythm.? Pulses normal.? Respiratory: No respiratory distress.? Breath sounds normal.? Abdomen: Soft and nontender.? Skin: Skin warm and dry.? Normal skin color.? Normal skin turgor.? Extremities: No lower extremity edema.? No calf ttp. 5/5 strength to bilateral upper and lower extremities Neuro: Oriented X 3.? No motor deficit.? No sensory deficit. CN 2-12 intact Objective Data Active Medications Acetaminophen (Acetaminophen 325 Mg Tablet) 975 mg PO Q6H PRN PRN Reason: Pain, Mild 1-3,fever,headache Last Admin: 12/06/24 04:44 Dose: 975 mg Documented By: MIGEL Calcium Carbonate (Calcium Carbonate 750 Mg Tab.Chew) 750 mg PO Q4H PRN PRN Reason: Heartburn Enoxaparin Sodium (Enoxaparin Sodium 40 Mg/0.4 Ml Syringe) 40 mg SUBCUT Q24H [facility] Last Admin: 12/05/24 23:09 Dose: 40 mg Documented By: MIGEL Diltiazem HCl 125 mg/ Sodium (Chloride) 125 mls @ 0 mls/hr IVCONT .Q0M [facility]; Protocol Last Titration: 12/05/24 16:32 Dose: 0 mg/hr, 0 mls/hr Documented By: MECCA Lactated Ringer's (Lr) 1,000 mls @ 150 mls/hr IVCONT .Q6H40M [facility] Last Admin: 12/06/24 01:27 Dose: 150 mls/hr Documented By: MIGEL Magnesium Hydroxide (Milk Of Magnesia 30 Ml Oral.Susp) 30 ml PO DAILY PRN PRN Reason: Constipation Melatonin (Melatonin 3 Mg Tablet) 6 mg PO BEDTIME PRN PRN Reason: Insomnia Nicotine Polacrilex (Nicotine Polacrilex 2 Mg Gum) 2 mg BUCCAL Q2H PRN PRN Reason: Nicotine Cravings Ondansetron HCl (Ondansetron Hcl 4 Mg/2 Ml Vial) 4 mg IVPUSH Q8H PRN PRN Reason: Nausea and Vomiting Sodium Chloride (0.9 % Sodium Chloride Flush 3 Ml Syringe) 3 ml IVFLUSH QSHIFT [facility] Last Admin: 12/06/24 01:10 Dose: 3 ml Documented By: MIGEL Labs 12/06/24 00:54 12/06/24 00:14 Labs: Laboratory Results - last 24 hr 12/05/24 12/05/24 12/06/24 16:03 16:22 00:13 MCV 91.7 MCH 32.1 MCHC 35.0 RDW 12.1 Plt Count 396 MPV 9.5 Immature Gran % (Auto) 0.3 Neut % (Auto) 83.1 H Lymph % (Auto) 13.0 L [place] % (Auto) 2.7 Eos % (Auto) 0.3 Baso % (Auto) 0.6 Lymph # (Auto) 1.3 [place] # (Auto) 0.3 Eos # (Auto) 0.0 Baso # (Auto) 0.1 Abs Immat Gran (auto) 0.03 Absolute Neuts (auto) 8.2 Absolute Nucleated RBC 0.000 Nucleated RBC % (auto) 0.0 PT 10.7 L INR 0.9 APTT 29.9 Anion Gap 26 H Cancelled Estim Creat Clear Calc 102.4 Cancelled Estimated GFR > 60 Cancelled POC Glucose 133 H Random Glucose 112 Cancelled Lactic Acid 0.7 Calcium 9.4 Cancelled Magnesium 1.7 Cancelled Total Bilirubin 0.4 AST 70 H ALT 89 H Alkaline Phosphatase 70 B-Natriuretic Peptide < 10 Total Protein 8.4 H Albumin 4.6 Beta-Hydroxybutyrate TSH 0.37 Beta HCG, Quant < 2 Influenza Type A (PCR) NEGATIVE Influenza Type B (PCR) NEGATIVE RSV RNA Qual (PCR) NEGATIVE SARS-CoV-2 RNA (RT-PCR) NEGATIVE 12/06/24 12/06/24 00:14 00:54 MCV 91.6 MCH 32.0 MCHC 35.0 RDW 12.0 Plt Count 307 MPV 9.1 L Immature Gran % (Auto) 0.3 Neut % (Auto) 62.8 Lymph % (Auto) 27.5 [place] % (Auto) 6.8 Eos % (Auto) 2.1 Baso % (Auto) 0.5 Lymph # (Auto) 2.1 [place] # (Auto) 0.5 Eos # (Auto) 0.2 Baso # (Auto) 0.0 Abs Immat Gran (auto) 0.02 Absolute Neuts (auto) 4.7 Absolute Nucleated RBC 0.000 Nucleated RBC % (auto) 0.0 PT INR APTT Anion Gap 15 Estim Creat Clear Calc 113.8 Estimated GFR > 60 POC Glucose Random Glucose 80 Lactic Acid Calcium 8.6 D Magnesium 1.7 Total Bilirubin AST ALT Alkaline Phosphatase B-Natriuretic Peptide Total Protein Albumin Beta-Hydroxybutyrate 1.30 H TSH Beta HCG, Quant Influenza Type A (PCR) Influenza Type B (PCR) RSV RNA Qual (PCR) SARS-CoV-2 RNA (RT-PCR) Assessment and Plan (1) Atrial fibrillation with rapid ventricular response: Status: Acute (2) Migraines: Status: Acute (3) Mild intermittent asthma: Status: Acute (4) Tobacco use disorder: Status: Chronic (5) Obesity (BMI 30-39.9): Status: Chronic Plan 39 year old female admitted for rapid afib w/ RVR now converted to NSR feeling well this am. No CP, SOB. No overnight events per nursing. Pending cardiology consult/input #Rapid a fib with RVR (resolved) - HR up to 220, was 130 upon arrival - treated with: adenosine, 03/25/12, Cardizem drip but could not tolerate due to hypotension therefore was discontinued and she was given metoprolol 5 mg IV and digoxin 0.125 mg, and flecanice 300mg - 2L NS in ED - admit for observation on tele - COVID/flu/RSV negative - CXR negative - no evidence of infectious process - cardiology consult- still pending #Mild intermittent asthma, no acute exacerbation - albuterol PRN #Migraines - tylenol PRN # Tobacco use disorder - smoking cessation encouraged # Obesity - BMI 34.0 - weight loss encouraged Code status: full code DVTP: lovenox Quality Stroke Does the patient have a stroke diagnosis?: No VTE Prior VTE?: No VTE Risk Level:: Medical - moderate - high VTE Device Contraindication: Treatment Not Indicated VTE Drug Contraindication: N/A - Med Ordered
--- NOTE | 2024-12-06 07:32 | PC.NURSE ---
Care of Pt assumed at change of shift. Pt is currently resting comfortably with eyes closed. NAD noted at this time Pt is awaiting transport to room 482.
[2024-12-06 08:30] VITALS: BP 121/74; PULSE 92; RESP 13; O2SAT 98
--- NOTE | 2024-12-06 09:26 | P.CONCA_ITS ---
History of Present Illness History of Present Illness Date of Service: 12/06/24 Chief complaint: new onset A fib Narrative: This is a cardiology consultation regarding atrial fibrillation. She presents to the hospital for palpitations. No recent alcohol excess. She did take a Triptan tablet for migraine but she has done that before. Came to the ER and found to be in atrial fibrillation rapid rate. Tried different medications including adenosine, diltiazem, metoprolol, digoxin and then got flecainide 300 mg daily. Converted to sinus rhythm. Overall duration of arrhythmias with a few hours. Currently, she feels okay. No other concerns like angina. No previous cardiac issues. Otherwise healthy with no major limitations. Review of Systems 2 Review of Systems: Yes all other systems are reviewed and are negative Constitutional: Constitutional: Reports as per HPI and Reports no additional constitutional complaints Eyes: Eyes: Reports as per HPI and Denies no additional eye complaints ENT: Denies system reviewed and no additional complaints, except as documented and Reports as per HPI Cardiovascular: Cardiovascular: Reports as per HPI, Reports no additional cardiovascular complaints, Denies acrocyanosis, Denies cool extremities, Denies chest pain, Denies leg edema, Denies lightheadedness, Denies palpitations and Denies dyspnea Respiratory: Respiratory: Reports as per HPI, Denies no additional respiratory complaints and Denies dyspnea Gastrointestinal: Gastrointestinal: Reports as per HPI and Denies no additional gastrointestinal complaints Genitourinary: Genitourinary: Reports as per HPI Musculoskeletal: Musculoskeletal: Reports no additional musculoskeletal complaints and Reports as per HPI Integumentary/Breasts: Skin/Breast: Reports system reviewed and no additional complaints, except as docu Neurologic: Reports system reviewed and no additional complaints, except as documented and Reports as per HPI Psychiatric: Psychiatric: Reports no additional psychiatric complaints and Reports as per HPI Endocrine: Endocrine: Reports no additional endocrine complaints, Reports as per HPI and Denies palpitations Hematologic/Lymphatic: Hematologic/Lymphatic: Reports no additional hematologic/lymphatic complaints and Reports as per HPI Allergic/Immunologic: Allergic/Immunologic: Reports no additional allergic/immunologic complaints and Reports as per HPI [facility] Past Medical History Medical History (Updated 12/05/24 @ 21:45 by Ai Frank PA-C) Mild intermittent asthma Migraines Family History Family History (Updated 12/06/24 @ 10:19 by Wilton Greene MD) Mother Atrial fibrillation Social History Social History Alcohol intake: current Alcohol intake frequency: holidays/special occasions only Alcohol type: wine Smoked in Last 30 Days: Yes Substance Use Type: Marijuana Substance Use Frequency: Chronic Longstanding Last Used Substance: Just Prior to Admission Advance Directives: No Advance Directives Information Provided: Yes Do you have a plan to hurt others: No Plan Meds Allergies Allergy/AdvReac Type Severity Reaction Status Date / Time walnut Allergy Severe ANAPHYLAXIS Verified 12/05/24 15:33 latex [LATEX] Allergy Mild RASH Verified 12/05/24 15:33 prochlorperazine AdvReac Mild ANXIETY Verified 12/05/24 15:33 [From COMPAZINE] Active Medications: Current Medications Acetaminophen (Acetaminophen 325 Mg Tablet) 975 mg PO Q6H PRN PRN Reason: Pain, Mild 1-3,fever,headache Last Admin: 12/06/24 04:44 Dose: 975 mg Calcium Carbonate (Calcium Carbonate 750 Mg Tab.Chew) 750 mg PO Q4H PRN PRN Reason: Heartburn Enoxaparin Sodium (Enoxaparin Sodium 40 Mg/0.4 Ml Syringe) 40 mg SUBCUT Q24H [facility] Last Admin: 12/05/24 23:09 Dose: 40 mg Diltiazem HCl 125 mg/ Sodium (Chloride) 125 mls @ 0 mls/hr IVCONT .Q0M [facility]; Protocol Last Titration: 12/05/24 16:32 Dose: 0 mg/hr, 0 mls/hr Lactated Ringer's (Lr) 1,000 mls @ 150 mls/hr IVCONT .Q6H40M [facility] Last Admin: 12/06/24 08:28 Dose: 150 mls/hr Magnesium Hydroxide (Milk Of Magnesia 30 Ml Oral.Susp) 30 ml PO DAILY PRN PRN Reason: Constipation Melatonin (Melatonin 3 Mg Tablet) 6 mg PO BEDTIME PRN PRN Reason: Insomnia Nicotine Polacrilex (Nicotine Polacrilex 2 Mg Gum) 2 mg BUCCAL Q2H PRN PRN Reason: Nicotine Cravings Ondansetron HCl (Ondansetron Hcl 4 Mg/2 Ml Vial) 4 mg IVPUSH Q8H PRN PRN Reason: Nausea and Vomiting Sodium Chloride (0.9 % Sodium Chloride Flush 3 Ml Syringe) 3 ml IVFLUSH QSHIFT [facility] Last Admin: 12/06/24 08:01 Dose: Not Given Home Medications ?Medication ?Instructions ?Recorded ?Confirmed ?Last Taken ?Type pimecrolimus 1 % topical cream 1 appl topical TID 12/06/24 12/06/24 12/05/24 History sumatriptan succinate 6 mg/0.5 mL 6 mg subcut QMONTH PRN Migraine 12/06/24 12/06/24 5 Weeks Ago History subcutaneous pen injector Headache ~11/01/24 triamcinolone acetonide 0.1 % 1 appl topical BID PRN eczema 12/06/24 12/06/24 2 Days Ago History topical cream ~12/04/24 zolmitriptan 5 mg tablet 5 mg PO DAILY PRN migraine 12/06/24 12/06/24 12/05/24 History Physical Exam 2 Vital Signs: Vital Signs: Last Vital Signs Temp 97.8 F 12/05/24 15:30 Pulse 92 12/06/24 08:30 Resp 13 12/06/24 08:30 BP 121/74 12/06/24 08:30 Pulse Ox 98 12/06/24 08:30 O2 Del Method Room Air 12/06/24 08:30 O2 Flow Rate 2 12/05/24 18:43 BMI result Body Mass Index 34.0 Const: General: comfortable and no acute distress O rientation/consciousness: patient oriented x3 HEENT: Other: Unremarkable Head: Yes normal to inspection Neck: Neck: Yes normal visual inspection Chest: Chest palpation & inspection: normal inspection of the chest Resp: Auscultation: clear to auscultation bilaterally Cardio: Palpation: normal PMI Heart sounds: S1 normal heart sound present, S2 normal heart sound present, no gallops, no murmurs and no rubs GI: Palpation (GI): Soft to palpation Back/Spine/Pelvis: Other: unremarkable Skin: General skin exam: no rashes or lesions noted Neuro: General: patient oriented x3 Extrem: General: Yes normal to inspection Psych: Mental Status: mental status grossly normal Objective Labs and Meds 12/06/24 00:54 12/06/24 00:14 Lab results: Laboratory Results - last 24 hr 12/05/24 12/05/24 12/06/24 16:03 16:22 00:13 WBC 9.9 RBC 4.83 Hgb 15.5 Hct 44.3 MCV 91.7 MCH 32.1 MCHC 35.0 RDW 12.1 Plt Count 396 MPV 9.5 Immature Gran % (Auto) 0.3 Neut % (Auto) 83.1 H Lymph % (Auto) 13.0 L [place] % (Auto) 2.7 Eos % (Auto) 0.3 Baso % (Auto) 0.6 Lymph # (Auto) 1.3 [place] # (Auto) 0.3 Eos # (Auto) 0.0 Baso # (Auto) 0.1 Abs Immat Gran (auto) 0.03 Absolute Neuts (auto) 8.2 Absolute Nucleated RBC 0.000 Nucleated RBC % (auto) 0.0 PT 10.7 L INR 0.9 APTT 29.9 Sodium 139 Cancelled Potassium 3.8 Cancelled Chloride 104 Cancelled Carbon Dioxide 13 L Cancelled Anion Gap 26 H Cancelled BUN 13 Cancelled Creatinine 0.80 Cancelled Estim Creat Clear Calc 102.4 Cancelled Estimated GFR > 60 Cancelled POC Glucose 133 H Random Glucose 112 Cancelled Lactic Acid 0.7 Calcium 9.4 Cancelled Magnesium 1.7 Cancelled Total Bilirubin 0.4 AST 70 H ALT 89 H Alkaline Phosphatase 70 Troponin I High Sens 15.5 B-Natriuretic Peptide < 10 Total Protein 8.4 H Albumin 4.6 Beta-Hydroxybutyrate TSH 0.37 Beta HCG, Quant < 2 Influenza Type A (PCR) NEGATIVE Influenza Type B (PCR) NEGATIVE RSV RNA Qual (PCR) NEGATIVE SARS-CoV-2 RNA (RT-PCR) NEGATIVE 12/06/24 12/06/24 00:14 00:54 WBC 7.6 RBC 3.81 L D Hgb 12.2 D Hct 34.9 L D MCV 91.6 MCH 32.0 MCHC 35.0 RDW 12.0 Plt Count 307 MPV 9.1 L Immature Gran % (Auto) 0.3 Neut % (Auto) 62.8 Lymph % (Auto) 27.5 [place] % (Auto) 6.8 Eos % (Auto) 2.1 Baso % (Auto) 0.5 Lymph # (Auto) 2.1 [place] # (Auto) 0.5 Eos # (Auto) 0.2 Baso # (Auto) 0.0 Abs Immat Gran (auto) 0.02 Absolute Neuts (auto) 4.7 Absolute Nucleated RBC 0.000 Nucleated RBC % (auto) 0.0 PT INR APTT Sodium 134 L Potassium 3.6 Chloride 103 Carbon Dioxide 20 L Anion Gap 15 BUN 11 Creatinine 0.72 Estim Creat Clear Calc 113.8 Estimated GFR > 60 POC Glucose Random Glucose 80 Lactic Acid Calcium 8.6 D Magnesium 1.7 Total Bilirubin AST ALT Alkaline Phosphatase Troponin I High Sens B-Natriuretic Peptide Total Protein Albumin Beta-Hydroxybutyrate 1.30 H TSH Beta HCG, Quant Influenza Type A (PCR) Influenza Type B (PCR) RSV RNA Qual (PCR) SARS-CoV-2 RNA (RT-PCR) ECG Interpretation: Initial EKG shows atrial fibrillation with rapid ventricular response at 184/Min with nonspecific ST-T changes. In the follow-up EKG sinus rhythm at 90/Min. Currently, sinus rhythm on telemetry. Assessment and Plan (1) Atrial fibrillation with rapid ventricular response: Status: Acute Plan Atrial fibrillation rapid response but now in sinus rhythm. Responded to flecainide 300 mg but she also got other medications including metoprolol, diltiazem, digoxin. High sensitivity troponin within range. Cardiac BNP is normal. Possibly lone atrial fibrillation. Start Toprol-XL 25 mg daily. No need for anticoagulation at this time. Outpatient echocardiogram/Holter will be arranged. Abnormal LFTs will need to be followed up through her own PCP. Follow-up will be arranged. Procedures Date of Service Date of Service: 12/06/24
--- NOTE | 2024-12-06 09:32 | P.DS_ITS ---
DS: Providers Provider Date of Service: 12/06/24 Date of admission: 12/05/24 21:45 Date of discharge: 12/06/24 Primary care physician: Unknown Physician Consults: 12/05/24 21:56 Consult to Cardiology Routine Consulting Provider: Wilton Greene Reason for consultation: new onset a fib Has provider been notified: Yes Attending physician on discharge: Tristin Zimmerman Discharging clinician: Gagan Maldonado DS: Diagnosis Discharge Diagnosis (1) Atrial fibrillation with rapid ventricular response: Status: Acute (2) Migraines: Status: Acute (3) Mild intermittent asthma: Status: Acute (4) Tobacco use disorder: Status: Chronic (5) Obesity (BMI 30-39.9): Status: Chronic DS: Summary Hospital Course Hospital Course: From H&P on date of admission: Patient is a 39-year-old female with a medical history significant for mild intermittent asthma and migraines, who presented to the ED due to palpitations. When she arrived to the ED her heart rate was about 130, which increased to 224 shortly after. She denies any precipitating events including any drug use or alcohol. She states that she did take a triptan tablet earlier today for her migraines but this is not new for her. She denies any recent illness. She does vape nicotine and will drink alcohol socially about 2-3 times per week. She also smokes marijuana on a regular basis. She does complain of a headache but denies any shortness of breath, nausea, vomiting, abdominal pain or urinary symptoms. She was treated with adenosine, 03/25/12, Cardizem drip but could not tolerate d ue to hypotension therefore was discontinued and she was given metoprolol 5 mg IV and digoxin 0.125 mg. Ultimately Cardiology recommended flecainide 300 mg. She converted back to normal sinus rhythm, we will be admitted for observation. New onset afib treated with: adenosine, 03/25/12, Cardizem drip but could not tolerate due to hypotension therefore was discontinued and she was given metoprolol 5 mg IV and digoxin 0.125 mg, and flecanice 300mg Seen by cardiology who recommends patient to be DC home on toprol XL 25 mg daily with cardiology follow up Upon my evaluation this am she is feeling well just reports shes tired and wants to sleep Time spent discussing smoking cessation with patient: more than 10 minutes Status at Discharge Cognitive/behavioral status at discharge: A&O X4 Functional status at discharge: independent ambulation Overall status at discharge: patient is back to baseline Time Attestation Total time managing care of this patient today: 35 mintues. Discharge Coordination Time (in mins): 35 Quality: Safe Use of Opioids Does Pt have an Active Cancer Diagnosis on the Problem List?: No Quality: Stroke Does the patient have a stroke diagnosis?: No Physical Exam Vital Signs: Vital Signs: Last Vital Signs Temp 97.8 F 12/05/24 15:30 Pulse 92 12/06/24 08:30 Resp 13 12/06/24 08:30 BP 121/74 12/06/24 08:30 Pulse Ox 98 12/06/24 08:30 O2 Del Method Room Air 12/06/24 08:30 O2 Flow Rate 2 12/05/24 18:43 BMI result Body Mass Index 34.0 Appearance: Alert.? Oriented X3.? No acute distress.? Head: Normocephalic, atraumatic, no step-offs or deformities Eyes: Pupils equal, round and reactive to light.? Neck: Normal inspection.? Neck supple.? CVS: Normal heart rate and rhythm.? Pulses normal.? Respiratory: No respiratory distress.? Breath sounds normal.? Abdomen: Soft and nontender.? Skin: Skin warm and dry.? Normal skin color.? Normal skin turgor.? Extremities: No lower extremity edema.? No calf ttp. 5/5 strength to bilateral upper and lower extremities Back: No midline tenderness, no C-spine tenderness, full range of motion, no CVA tenderness bilaterally Neuro: Oriented X 3.? No motor deficit.? No sensory deficit. CN 2-12 intact DS: Data Data Completed and Pending Labs on day of discharge: Laboratory Results - last 24 hr 12/05/24 12/05/24 12/06/24 16:03 16:22 00:13 WBC 9.9 RBC 4.83 Hgb 15.5 Hct 44.3 MCV 91.7 MCH 32.1 MCHC 35.0 RDW 12.1 Plt Count 396 MPV 9.5 Immature Gran % (Auto) 0.3 Neut % (Auto) 83.1 H Lymph % (Auto) 13.0 L [place] % (Auto) 2.7 Eos % (Auto) 0.3 Baso % (Auto) 0.6 Lymph # (Auto) 1.3 [place] # (Auto) 0.3 Eos # (Auto) 0.0 Baso # (Auto) 0.1 Abs Immat Gran (auto) 0.03 Absolute Neuts (auto) 8.2 Absolute Nucleated RBC 0.000 Nucleated RBC % (auto) 0.0 PT 10.7 L INR 0.9 APTT 29.9 Sodium 139 Cancelled Potassium 3.8 Cancelled Chloride 104 Cancelled Carbon Dioxide 13 L Cancelled Anion Gap 26 H Cancelled BUN 13 Cancelled Creatinine 0.80 Cancelled Estim Creat Clear Calc 102.4 Cancelled Estimated GFR > 60 Cancelled POC Glucose 133 H Random Glucose 112 Cancelled Lactic Acid 0.7 Calcium 9.4 Cancelled Magnesium 1.7 Cancelled Total Bilirubin 0.4 AST 70 H ALT 89 H Alkaline Phosphatase 70 Troponin I High Sens 15.5 B-Natriuretic Peptide < 10 Total Protein 8.4 H Albumin 4.6 Beta-Hydroxybutyrate TSH 0.37 Beta HCG, Quant < 2 Influenza Type A (PCR) NEGATIVE Influenza Type B (PCR) NEGATIVE RSV RNA Qual (PCR) NEGATIVE SARS-CoV-2 RNA (RT-PCR) NEGATIVE 12/06/24 12/06/24 00:14 00:54 WBC 7.6 RBC 3.81 L D Hgb 12.2 D Hct 34.9 L D MCV 91.6 MCH 32.0 MCHC 35.0 RDW 12.0 Plt Count 307 MPV 9.1 L Immature Gran % (Auto) 0.3 Neut % (Auto) 62.8 Lymph % (Auto) 27.5 [place] % (Auto) 6.8 Eos % (Auto) 2.1 Baso % (Auto) 0.5 Lymph # (Auto) 2.1 [place] # (Auto) 0.5 Eos # (Auto) 0.2 Baso # (Auto) 0.0 Abs Immat Gran (auto) 0.02 Absolute Neuts (auto) 4.7 Absolute Nucleated RBC 0.000 Nucleated RBC % (auto) 0.0 PT INR APTT Sodium 134 L Potassium 3.6 Chloride 103 Carbon Dioxide 20 L Anion Gap 15 BUN 11 Creatinine 0.72 Estim Creat Clear Calc 113.8 Estimated GFR > 60 POC Glucose Random Glucose 80 Lactic Acid Calcium 8.6 D Magnesium 1.7 Total Bilirubin AST ALT Alkaline Phosphatase Troponin I High Sens B-Natriuretic Peptide Total Protein Albumin Beta-Hydroxybutyrate 1.30 H TSH Beta HCG, Quant Influenza Type A (PCR) Influenza Type B (PCR) RSV RNA Qual (PCR) SARS-CoV-2 RNA (RT-PCR) Discharge Plan Discharge Patient Disposition: Home, Self-Care Referrals: Wilton Greene MD [Physician] - 1 Week Physician,Unknown J [Primary Care Provider] - 1 Week Discharge Medications: New metoprolol succinate [Toprol XL] 25 mg tablet extended release 24 hr 25 mg PO DAILY 90 Days Qty: 90 0RF Discharge Orders: Discharge Order (Routine); Ordered 12/06/24 Ordered By: Gagan Maldonado Diet: Advance to usual diet Activity on Discharge: As tolerated Stand Alone Forms: Patient Portal Discharge page Print Language: Yakut Care Plan Goals: See below Health Concerns: New onset AFib Plan of Treatment: Take metoprolol as prescribed Follow up with PCP to trend your liver function within a week Assessment: See discharge summary
--- NOTE | 2024-12-06 10:13 | PHA.MEDREC ---
Pharmacy Consult ? Medication Reconciliation Pharmacy has completed the medication reconciliation. Spoke to pt to confirm meds. Reports using pimecrolimus TID instead of BID. Reports using Imitrex injection about once a month.
--- NOTE | 2024-12-06 10:42 | MHC.CM.PN ---
PT REPORTS SHE LIVES WITH A ROOMMATE AND IS INDEPENDENT WITH CARE SHE HAS NO DME AND NO SERVICES SHE DECLINES ASSISTANCE COMPLETING A HCP TODAY PCP: HENNY ROBBINS OBSERVATION NOTICE DELIVERED PREFERRED DCP: HOME PT CLEARED TO DC HOME TODAY WITH NO SERVICES VIA SELF-TRANSPORT
[2024-12-06 11:21] VITALS: BP 132/79; PULSE 98; RESP 18; TEMP 36.8; O2SAT 96
--- NOTE | 2024-12-08 12:37 | PC.NURSE ---
back documentation from time of ed arrival, This RN administered 2mg IV ativan via verbal order from MD Gamez at bedside. PT received IV ativan at the same time she received 20mg IV push Dilt.
== END 2024-12-06 11:04 | disposition home or self-care (01) ==
LOC: HO.ED 19:34 → HO.EDOVER 21:56
PROVIDERS: Internal Medicine; Physician Assistant Medical; Admitting Provider Physician Assistant; Emergency Provider Emergency Medicine; Visit Provider Physician Assistant
DX: I48.20 Chronic atrial fibrillation, unspecified (principal); G43.909 Migraine, unspecified, not intractable, without status migrainosus; I95.9 Hypotension, unspecified; R07.9 Chest pain, unspecified; J45.20 Mild intermittent asthma, uncomplicated; F17.200 Nicotine dependence, unspecified, uncomplicated; R06.02 Shortness of breath; E66.9 Obesity, unspecified; Z68.34 Body mass index [BMI] 34.0-34.9, adult; Z03.818 Encounter for observation for suspected exposure to other biological agents ruled out
CPT/HCPCS: 0241U; 36415; 71045; 80048; 80053; 82010; 82947; 83605; 83735; 83880; 84443; 84484; 84702; 85025; 85610; 85730; 93005; 96361; 96372; 96374; 96375; 99222; 99285; J0153; J1160; J1650; J7120

== ENCOUNTER → 2024-12-05 15:30 | Outpatient (BNV) | payer BC, SELFPAY | PROVIDERS: Emergency Provider Emergency Medicine; Visit Provider Radiology Diagnostic Radiology | DX: R07.9 Chest pain, unspecified (principal) | CPT/HCPCS: 71045 ==

== ENCOUNTER → 2024-12-05 21:45 | Outpatient (BNV) | payer BC, SELFPAY | PROVIDERS: Admitting Provider Physician Assistant; Emergency Provider Emergency Medicine; Visit Provider Physician Assistant | DX: I48.91 Unspecified atrial fibrillation (principal); G43.909 Migraine, unspecified, not intractable, without status migrainosus; J45.20 Mild intermittent asthma, uncomplicated; F17.200 Nicotine dependence, unspecified, uncomplicated; E66.9 Obesity, unspecified | CPT/HCPCS: 99239 ==

== ENCOUNTER → 2024-12-05 21:45 | Outpatient (BNV) | payer BC, SELFPAY | PROVIDERS: Admitting Provider Physician Assistant; Emergency Provider Emergency Medicine; Visit Provider Internal Medicine | DX: I48.91 Unspecified atrial fibrillation (principal) | CPT/HCPCS: 93010; 99223 ==

== ENCOUNTER → 2024-12-21 08:07 | Outpatient (REF) | payer BC, SELFPAY ==
--- NOTE | 2024-12-21 08:10 | CA_ITS ---
Transthoracic Echocardiogram Patient (Last, First, Middle): Cortney Sue, Gender: Female Date of : 1985 Age: 39 Procedure Date: 12/21/2024 Procedure Type: Transthoracic Echocardiogram Location: OP Height: 162.56 cm Weight: 86.18 kg BSA: 1.91 m2 Heart Rate: 58 bpm BP: 124 / 72 mmHg Construction Equipment Technician: SB Referring MD: Wilton Greene MD Symptoms: I48.91 - Unspecified atrial fibrillation Study Quality: Adequate ECG Rhythm: Bradycardia Conclusions: - The left ventricular systolic function is hyperdynamic. The visually estimated ejection fraction is >70%. - No obvious valvular pathology seen on this study. Findings Left Ventricle Normal left ventricular cavity size. There is normal left ventricular wall thickness. The left ventricular systolic function is hyperdynamic. The visually estimated ejection fraction is >70%. There is no evidence of regional wall motion abnormalities. Diastolic function is normal for age. Right Ventricle Normal right ventricular cavity size and systolic function. Atria Both atria are normal in size. There is no evidence of interatrial shunt. Aortic Valve There is a normal trileaflet aortic valve. There is no aortic valve stenosis. There is no aortic valve regurgitation. Mitral Valve The mitral valve appears normal. There is no mitral valve regurgitation. There is no mitral valve stenosis. Pulmonic Valve The pulmonic valve is likely normal. Tricuspid Valve There is mild tricuspid valve regurgitation. There is no evidence of pulmonary hypertension. Great Vessels The asc aorta is normal in size. Venous The inferior vena cava is normal in size and collapses greater than 50% with inspiration. Pericardium/Pleural There is a trivial pericardial effusion. Prior Study Comparison No prior study available for comparison. Recommendations, Care & Conclusions No obvious valvular pathology seen on this study. Measurements 2D Linear Measurements IVSd: 1.03 0.6-0.9/0.6-1.0 cm LVIDd: 4.83 3.9-5.3/4.2-5.9 cm LVIDd Index: 2.53 2.4-3.2/2.2-3.1 cm/m2 LVIDs: 3.03 2.0-3.6 cm LVPWd: 0.83 0.7-1.1 cm LA Diam: 3.90 2.7-3.8/3.0-4.0 cm LAIDs Index: 2.04 1.5-2.3 cm/m2 LV Mass: 193.79 67-162/88-224 g LV Mass Index: 101.46 43-95/49-115 g/m2 LVOT Diam: 1.90 3.0+(-)1.3 cm 2D Systolic Function EF 4C: 76.10 >55% EF 2C: 76.30 >55% EF BiP: 76.60 >55% Mitral Valve MV Pk E: 0.97 MV PK A: 0.51 MV Decel Time: 230.00 E/A: 1.90 E'Lateral: 10.90 E'Medial: 9.03 E/E' Med: 10.70 E/E' Lat: 8.90 PHT: 67.00 MVA PHT: 3.28 Decel Rolette: 4.21 Aortic Valve AoV Pk Troy: 1.49 AoV Pk Grad: 9.00 YOBANY: 2.86 LVOT LVOT Pk Troy: 1.39 LVOT Mn Troy: 0.87 LVOT VTI: 0.27 LVOT Pk Grad: 8.00 LVOT Mn Grad: 4.00 LVOT Diam: 1.90 LVOT Area: 2.84 Diastolic Function MV Pk E: 0.97 MV Pk A: 0.51 E/A: 1.90 E'Medial: 9.03 E/E' Med: 10.70 E' Laterial: 10.90 E/E' Lat: 8.90 Right Ventricle TAPSE (mm): 27.70 TVS' Troy: 17.30 Tricuspid Valve TR Pk Troy: 2.02 TR Pk Grad: 16.00 RA Press: 3.00 RVSP: 19.00 Great Vessels Aorta Sinus of Valsalva: 3.20 2.0-3.5 cm Ao Asc: 3.20 2.1-3.4 cm Pulmonary Veins Pulm Vein S/D 0.80 Pulmonary Valve PV Pk Troy: 0.95 Peak PV Grad: 4.00 Updated in Other Vendor System with Status of Final Wilton Greene MD electronically signed on 12/21/2024 9:37:15 AM with status of Final
--- OUTSIDE RECORDS SUMMARY | 2024-12-21 08:12 | XMS_ITS | Data Portability ---
Author Organization [facility], [employer] Address [address] [place] [id number] Care Team Providers Care Dock Guard Name Role Phone CHARLENE PICKENS Referring Provider CHARLENE PICKENS Primary Care Provider Assessment Encounter Date Assessment Date Assessment LastModified by Organization Details LastModified Time 03/28/2023 03/28/2023 IMPRESSION: Freq uent episodic migraine headaches, at least 3-4 times per month however requiring all her more of 9 tablets of rescue medication and addition to 2 additional doses of injectables myofascial features, left side predominant Neurologic examination is normal with the exception of her her congenital hearing loss. Myofascial examination is notable for active trigger points at the left medial paraspinal muscles radiating to the occiput and the back of the eye as well as right skull base trigger points. She has also personally self identified left sternocleidomastoid trigger points although I did not elicit this today. She is wondering if Botox might help predominantly left-sided migraines that began at the back of the neck and slowly progress toward the back of the eye. She has active trigger points at the left skull base that radiate up over the skull toward the back of the eye. On the right side, there is an active trigger point at the skull base. It only radiates toward the occipital region. We briefly discussed possibility of trial of CGRP better. She has previously been on propranolol 120 mg for migraine prevention which did help when she had higher frequency of migraines when she was in her 20s, at least 6 /month but she had a little bit of tiredness and (also calmness which she thinks might of been a good side effect) on it and does not like to be on regular medications and so she weaned herself off. Currently, if she catches the pain in time she is able to control it with zolmitriptan p.o. or injectable sumatriptan but she does wonder if Botox might help. Recently had physical therapy for neck pain at [facility] which has been very helpful with the overall neck and shoulder discomfort. It did not necessarily improve her migraines though the referral was not for myofascial release due to migraines. She would be very interested in trying physical therapy for myofascial release before starting any medication or considering Botox. PLAN: Cortney Sue March 28 2023 For the musculoskeletal component of the left sided migraine START physical therapy [facility] [address] [place] [address] Ph. , You will need to call her to set up the appointment Follow up ~ 2 months [email or web address] Not available 04/18/2023 12:02:18 Plan of Treatment Reminders Order Date Submit Date Provider Last Modified By Organization Details Last Modified Time Details Appointments None recorded. Lab None recorded. Referral neurologic physical therapist referral - For myoafascial release for Migraine, left side, typically beginning at left skull base. Active trigger point at left skull radiating to back of eye, R skull base trigger point w/ less severe radiation. 2022 023 [email or web address] 1 [facility], [address] [place], [address], 14:53:33 Procedures None recorded. Surgeries None recorded. Imaging None recorded. Medication Orders None recorded. Patient TargetsNo targets recorded. Patient Instructions Encounter Date Encounter Id Patient Instructions Last Modified By Organization Details Last Modified Time 03/28/2023 [id number] Congenital hearing loss, wears hearing aids - and reads lips February 01, 2017 neurology consultation discussion IMPRESSION: episodic migraine She prefers to focus on solutions apart from prescription medication. The following plan was developed: PLAN Cortney Sue February 01, [address] Barksdale, chiropractor, for myofascial treatment of left upper trapezius ridge/semispinali s/suboccipital muscles at attachment to the skull from where migraines emanate. Vitamin B2 (riboflavin). 400 mg per day, for migraine prevention. This may be found [id number] at your pharmacy. Riboflavin may cause urine to have a more yellow color than normal, especially if large doses are taken. This is to be expected and is no cause for alarm. Usually, however, riboflavin does not cause any side effects. Magnesium, 400 mg per day. This can be found [id number]. Increase to 600, and then 800 mg, as long as it doesn't cause side effects. Magnesium citrate is absorbed better than other forms of magnesium. However magnesium ay cause diarrhea. If symptoms are mild, wait a while to see if they go away. You may also try dividing the dose in half and taking it twice a day, and adding rice or other bulk food to your diet that reduces diarrhea. If symptoms are not mild, reduce magnesium to a lower dosage at which you did not have diarrhea. Please try to find magnesium pills (NOT LIQUID magnesium citrate which will almost definitely cause diarrhea) that say magnesium citrate as this formulation is better absorbed by your body. You might have to go to one of the larger drugstores. Follow-up in 3 months BILLING: Discussion across issues of diagnoses and management and same day associated chart review and management greater than 50% greater than 80 minutes [email or web address] Not available 04/18/2023 12:01:40 Reason for Referral For myoafascial release for Migraine, left side, typically beginning at left skull base. Active trigger point at left skull radiating to back of eye, R skull base trigger point w/ less severe radiation. Referring Physician: Belle Llamas, Neurology, Encounter Date: 03/28/2023 Procedures Surgical History Date Name Laterality Status Provider Name and Address Organization Details Recorded Time 03/28/2023 DATA REVIEW completed BELLE LLAMAS PA-C [address] [place] [address] [place], [phone], [facility] Neurology [facility] 04/18/2023 10:11:31 Imaging Results None recorded. Procedure Notes None recorded. Medical Equipment None Reported. Allergies Allergen ID Allergen Name Allergen Category Reaction Reaction Severity Criticality Documentation Date Start Date Code Code System Note Provider Name and Address Organization Details Recorded Time 3013 Compazine medicatio n Not available Not available Not available 03/28/202376421 6 RxNorm BELLE LLAMAS PA-C [address] [place], [phone], [facility] 3 10:12:17 2776 latex environme nt,medica tion Not available Not available Not available 03/28/2023 71689 91 RxNorm rash BELLE LLAMAS PA-C [address] [place], [address], [facility] 3 14:39:06 Medications Name Sig Start Date Stop Date Status Note LastModified by Organization Details LastModified Time triamcinolone acetonide 0.1 % topical cream APPLY TO AFFECTED AREA TWICE A DAY NEEDED active Not Available Not Available No t Available zolmitriptan 5 mg tablet TAKE 1 TABLET BY MOUTH NEEDED FOR MIGRAINE. active Not Available Not Available No t Available lorazepam 0.5 mg tablet TAKE 1 TABLET BY MOUTH EVERY 6 HOURS NEEDED FOR ANXIETY active Not Available Not Available No t Available doxycycline monohydrate 100 mg capsule TAKE 1 CAPSULE BY MOUTH TWICE A DAY FOR 7 DAYS active Not Available Not Available No t Available albuterol sulfate HFA 90 mcg/actuation aerosol inhaler INHALE 2 PUFFS BY MOUTH EVERY 4 HOURS NEEDED FOR WHEEZING active Not Available Not Available No t Available sumatriptan 6 mg/0.5 mL subcutaneous pen injector TAKE 1 INJECTION INTRAMUSCU LARLY,MAY REPEAT ONCE AFTER 2 HOURS NEEDED active Not Available Not Available No t Available Vitals Date Recorded Body height Body mass index (BMI) Body weight Respiratory rate Provider Name and Address Organization Details Last Updated DateTime 03/28/2023 162.56 cm 31.8 kg/m2 54498.59 g 12 /min Belle Rosa [facility] 03/28/2023 14:30:37 Social History Question Answer Notes LastModified by Organizat ion Details LastModified Time Tobacco Smoking Status Never Smoker Belle pichardo [facility] 03/28/2023 14:32:08 What Is Your Level Of Alcohol Consumption? Occasional Information not available 03/28/2023 What Is Your Level Of Caffeine Consumption? Occasional Information not available 03/28/2023 What Is The Highest Grade Or Level Of School You Have Completed Or The Highest Degree You Have Received? [id number] Information not available 03/28/2023 Which Of Your Hands Is Dominant? Right Information not available 03/28/2023 Sex: Unknown Functional Status None recorded. Mental Status None recorded. Family History Relationship Description Onset Age of this Age Resolved Age Notes LastModified by Organization Details LastModified Time Father No current problems or disability Not available 03/28 14:31:22 Mother No current problems or disability Not available 03/28 14:31:22 Medical History Condition Response Claustrophobia N Hospitalizations N Head Trauma/Injury N High Blood Pressure or Hypertension N Thyroid Problems N Lung Disease N Depression N COPD or emphysema N Brain Tumors N Encephalitis N PTSD N Vitamin B12 deficiency N Heart Attack (SC) N Spine Problems N Obstructive Sleep Apnea N Alcoholism N Diabetes N Autoimmune disease N Bleeding Disorder N Arthritis N Developmental Problems N Tuberculosis N Cerebral Palsy N Neck Problems N Cancer N Back Problems N Stroke N Asthma Y Heartburn, acid reflux, GERD N Vitamin D Deficiency N Epilepsy/Seizures N Bipolar Disorder N Sleep Disorder N Hepatitis N Aneurysm N Liver Disease N Heart Disease N Headaches Y Fibromyalgia N Osteoporosis N High Cholesterol or Hyperlipidemia N Kidney Disease N Gynecological HistoryNo gynecological history recorded. Obstetrics History GPAL:G 0 P 0 0 0 0 Past Encounters Encounter ID Performer Location Encounter Start Date Encounter Closed Date Diagnosis/Indication Diagnosis SNOMED-CT Code Diagnosis ICD10 Code Diagnosis Note [id number] Chai Goddard MD [facility] [address] [place] [address] Kristian M[place] [phone] 03/28/2023 14:21:06 04/22/2023 17:28:40 Migraine without aura 70334813 G43.009 Dystonia 03623956 G24.3 Migraine with aura 92051 06 G43.109 Health Concerns Section Related Observation LastModified by Organization Detai ls LastModified Time None Recorded Concern Status LastModified by Organization Details LastModified Time None Recorded Advance Directives Directive None Recorded Payers None recorded. Notes Date Note Type Note Provider Name and Address Organization Details Recorded Time 03/28/2023 text/html She presents for reconsultation for evaluation of migraines. She was previously seen February 01, 2017. She is unaccompanied. 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 She then had worsening of migraines in her 20s.Headaches usually begin at the left base of her skull and then they go up toward the eye and they always travel and spread. She has had it on the right time between 3 and 4 times in her lifetime in the last 20 years but it is rare and 98% of the time it is on the left. She has light sensitivity and often has vomiting for the first 20 minutes. Headaches last for hours. When she first had the migraines she did do a CT scan and an MRI. She tried different diets. She saw a neurologist many years ago before seeing Dr. Goddard which she believes was in 2014 or (archived records were not available at the initial interview, now available, seen in January 2017 as above). When she was a student at [employer], she received biofeedback from a practitioner there which helps some. She tried acupuncture with body rupinder in [place] and in general, that seemed to help but she needed it continuously and eventually could not afford it. She was on propranolol for a while in her 20s up to 120 mg/day and it was helpful but she weaned herself off of it as she had some tiredness from it. There is also a calming effect which was a good side effect but she does not want to be on long-term medications he is not having interval migraines. She also noted that the migraines improved when she was in her 30s, part of her rationale for weaning off of the propranolol. She did not really notice an increase in the migraines when she took herself off of propranolol but she did notice a marked reduction when she first started nadolol, at the time 6 or 7 migraines per month and in the ED more often. She uses zolmitriptan if she can catch it on time and otherwise uses sumatriptan injection. She usually requires this almotriptan about 3-4 times per month. She has previously tried oral and nasal sumatriptan which were not helpful. She typically gets 9 zolmitriptan pills per month and 2 shots per 30 days. She sometimes uses all of them and sometimes requires extra. She is curious if her headache type would respond to Botox. She says she is not sure and it does not feel like a tension headache but it has always arise from the neck. She just went to physical therapy for neck pain with Abdirashid Adam at [facility]. This did help with some of the neck pain but did not give her migraine relief. It was not intended for migraines per se. She recalls Dr. Goddard was pushing there at the back of her neck and it was sore and almost like a migraine. Past history is notable for congenital deafness, has a hearing aids and reads lips, she has a minor asthma that affects her in the fall. She also has eczema (she has researched people with eczema and has noted that they tend to have migraines also). She has seasonal allergies, yesterday she had itchy puffy eyes. Her mother has breast cancer and atrial fibrillation, her father has high blood pressure and high cholesterol Jan neurology consultation Riccardo has had migraine episodes since about the age of 17. She started by trying to eliminate food triggers but this didnt work. She went to a neurologist who tried some medications that did not work. She then went with propranolol ER 120 mg under management of primary care which reduced her migraine frequency enough so that she could become functional. She has no side effects on propranolol. All her headaches start at the back left base of her skull. She estimates about 20 headache days per month, about 3-5 of which feel like they will turn into migraine. Almost all are treated effectively by either zolmitriptan or sumatriptan as long she takes it early. She takes between 10 and 15 tablets of these medications combined per month (she gets 9 of each), plus or minus a sumatriptan injectable shot between 0 and 2 times a month. She takes the pills for the migraine level beginning headaches and for some of the lesser headaches. Works for all of the lesser headaches. It works mostly or completely for all the migraine level headaches so that they either go away, often in about 30 minutes, or at least do not become severe, again as long as she takes the medicine soon. If it doesnt go away completely, she takes a second pill at around 2 hours and then it goes away. If she does not take the migraine medication in time, the migraine extends from the left occipital base over the top of her skull to involve her whole left side of her head with pounding intense pain, nausea and light and sound sensitivity. She is disabled for about 8 hours, lying in a dark quiet room. There is no tearing, rhinorrhea or ptosis. These are the ones she takes the injections for which sometimes improves the headache faster than the 8 hours. Headache is more likely if she is at one of her extremes of emotional energy, either positive/excited, or negative/angry or upset. Migraine is also more likely if she is working nonstop for many hours. Alcohol is a migraine trigger. Chai Goddard MD [address] [place], [place] [address], [phone], [facility] Neurology [facility] 04/18/2023 19:01:52 OBGyn Episode No OBEpisode recorded.
== END ==
LOC: HO.CARD 08:07
PROVIDERS: Visit Provider Internal Medicine
DX: I48.91 Unspecified atrial fibrillation (principal)
CPT/HCPCS: 93242; 93306

== ENCOUNTER → 2024-12-21 08:10 | Outpatient (BNV) | payer BC, SELFPAY | PROVIDERS: Visit Provider Internal Medicine | DX: I36.1 Nonrheumatic tricuspid (valve) insufficiency (principal) | CPT/HCPCS: 93306 ==

== ENCOUNTER 2025-01-18 08:15 | Outpatient (AMB) | payer BC, SELFPAY ==
[2025-01-18 08:18] VITALS: BP 132/80; PULSE 82; BMI 36.6
--- NOTE | 2025-01-18 08:18 | MHC.OFFVIS ---
Vital Signs 01/18/25 08:18 Height 5 ft 4 in Weight 212 lb 15.465 oz BMI 36.6 BP 132/80 Blood Pressure Location Lt brachial Position Sitting Pulse 82 Pulse Source Pulse Oximeter Intake Visit Reasons: F/u s/p testing Sock Ironer Required: No Allergies walnut Allergy (Severe, Verified 01/18/25 08:20) ANAPHYLAXIS latex [LATEX] Allergy (Mild, Verified 01/18/25 08:20) RASH prochlorperazine [From COMPAZINE] Adverse Reaction (Mild, Verified 01/18/25 08:20) ANXIETY Medication List - Last Reconciled 01/18/25 by DILCIA Taveras metoprolol succinate ER (Toprol XL) 50 mg PO DAILY pimecrolimus 1% 1 appl topical TID sumatriptan succinate 6 mg subcut QMONTH PRN triamcinolone acetonide 0.1% 1 appl topical BID PRN zolmitriptan 5 mg PO DAILY PRN HPI HPI F/u s/p testing: Details: Cortney is a 39-year-old female with past medical history of obesity, asthma, migraines, vaping nicotine who recently presented to [facility] with heart palpitations and was found to have AFib RVR. She was treated with heart rate control using multi agents with eventual conversion back to sinus rhythm. She was sent home with metoprolol. An outpatient Holter monitor and echocardiogram were completed and she now presents for follow-up. Today she reports she has been doing generally well since her hospital discharge. She is quite anxious about having recurrent AFib. She does feel intermittent heart palpitations that last several seconds before resolving. She believes this may be PAF. She says her mother has a history of atrial fibrillation so she is familiar with it. She is not clear of what triggered her event on the day of the ER visit. She had taken her sumatriptan for migraine but has done this many times in the past. She denies any routine alcohol use the will drink it periodically after work and with friends. She tells me she works nights and has broken sleep throughout the day. She has no concern for sleep apnea. Her asthma is currently well controlled and she does not use her rescue inhaler frequently. She does not drink caffeinated beverages and has chocolate only occasionally. She is not engage in routine exercise. She continues to vape with nicotine. She is taking the metoprolol but tells me that 25 mg did not seem to do much. She has been taking 50 mg daily. [facility] Medical History Mild intermittent asthma Migraines Family History Mother Atrial fibrillation Social History Alcohol intake: current Alcohol intake frequency: holidays/special occasions only Alcohol type: wine Substance Use Type: Marijuana service: No Review of Systems Const Details: feeling anxious All systems reviewed & are unremarkable except as noted in HPI and below ENT Denies dizziness Card Details: palpitations Denies chest pain, Denies chest pain at rest, Denies chest pain with activity, Denies rapid heart rate, Denies pedal edema, Denies edema, Denies leg edema, Denies lightheadedness, Denies palpitations, Denies dyspnea, Denies dyspnea on exertion and Denies orthopnea Resp Denies cough, Denies dyspnea and Denies dyspnea on exertion GI Denies hematochezia and Denies change in stool character Musc Denies abnormal gait, Denies limited range of motion, Denies muscle cramps, Denies muscle weakness, Denies numbness, Denies radiating pain into limb, Denies stiffness and Denies tingling Neuro Denies abnormal gait, Denies dizziness, Denies numbness and Denies tingling Endo Denies palpitations Physical Exam Vital Signs: Last Vital Signs Pulse 82 01/18/25 08:18 BP 132/80 01/18/25 08:18 BMI result Body Mass Index 36.6 Const General: cooperative, healthy appearing, comfortable and no acute distress Orientation/consciousness: patient oriented x3 Neck Neck: Yes normal visual inspection and Yes no JVD Resp Effort & Inspection: normal respiratory effort Auscultation: clear to auscultation bilaterally, no rales, no rhonchi and no wheezes Cardio Rate: regular rate Rhythm: regular rhythm Heart sounds: S1 normal heart sound present, S2 normal heart sound present, no gallops, no murmurs and no rubs Neuro General: patient oriented x3 Extrem General: Yes normal to inspection and No no pedal edema Psych Appearance: grossly normal Mental Status: mental status grossly normal Speech and movement: Normal speech and movement present Assessment & Plan Assessment & Plan (1) Atrial fibrillation: Code(s): I48.91 - Unspecified atrial fibrillation Category: Medical Plan: New diagnosis of atrial fibrillation with RVR that was treated in the ER with adenosine then IV diltiazem, metoprolol and digoxin and finally converting after use of flecainide p.o.. Symptom of heart palpitation and shortness of breath with atrial fibrillation. She was discharged with metoprolol XL 25 mg daily but states she was still getting palpitations and she upped her dose to 50 mg daily. She will still feel heart palpitations lasting seconds at a time and causing her much concern. Holter monitor done 12/21/2024 for 3 days shows sinus rhythm with average heart rate 83, rare PACs and PVCs. An echocardiogram 12/21/2024 shows EF greater than 70%, no valve abnormalities, both atria normal size. Will check a cardiac event monitor to assess for recurrent PAF. Will check an exercise stress test to evaluate for exercise induced arrhythmias and to help alleviate her current fear of exercise. Will do this on her prescribed metoprolol. If she does have documented recurrent atrial fibrillation then ablation can be considered. Her episode may have been an isolated event however no clear triggers identified. Diagnosis of AFib reviewed her. Continue metoprolol XL 50 mg daily. Avoid stimulants. Emergency care if needed. Cardiology follow-up in 2 months, sooner if needed. (2) Palpitations: Code(s): R00.2 - Palpitations Category: Medical Plan: As above. Unclear if this is extrasystoles or possible PAF. (3) Tobacco use disorder: Code(s): F17.200 - Nicotine dependence, unspecified, uncomplicated Category: Medical Plan: She vapes using nicotine. Recommended reduction and cessation of this product. (4) Hospital discharge follow-up: Code(s): Z09 - Encounter for follow-up examination after completed treatment for conditions other than malignant neoplasm Category: Medical Plan: Hospital discharge summary reviewed Plan Time spent on chart review, interview, documentation, assessment Orders: Orders CA stress test Today I48.91 - Unspecified atrial fibrillation, R00.2 - Palpitations ECG 30 day event monitor Today I48.91 - Unspecified atrial fibrillation, R00.2 - Palpitations Medications: New metoprolol succinate ER 50 mg PO DAILY 90 tabs 3RF Coding Level of Care Code Est Pt Level 4 (88317) Complex EM visit Add On G2211 Diagnoses Atrial fibrillation I48.91 Palpitations R00.2 Tobacco use disorder F17.200 Hospital discharge follow-up Z09 Time Spent (min) 36
--- OUTSIDE RECORDS SUMMARY | 2025-01-18 08:37 | XMS_ITS | Data Portability ---
Author Organization Formerly [facility] [employer] Address [address] [place] [id number] Care Team Providers Care Business Office Specialist Name Role Phone CHARLENE PICKENS Referring Provider [phone] CHARLENE PICKENS Primary Care Provider [phone] Assessment Encounter Date Assessment Date Assessment LastModified [...] had physical therapy for neck pain at [facility] which has been very helpful with the [...] [facility] physical [facility] [address] [place] [address] Ph. , You will need to call [...] [phone] [email or web address] 1 [facility], [address] [place], [address], 14:53:33 Procedures None recorded. Surgeries None recorded. [...] for migraine prevention. This may be found [id number]-[id number] at your pharmacy. Riboflavin may cause urine to have a more yellow color than normal, especially if large doses are taken. This is to be expected and is no cause for alarm. Usually, however, riboflavin does not cause any side effects. Magnesium, 400 mg per day. This can be found [id number]. Increase to 600, and then 800 mg, [...] 03/28/2023 DATA REVIEW completed BELLE LLAMAS PA-C [address] [place] [address] [place], [phone], [facility] 04/18/2023 10:11:31 Imaging Results None recorded. Procedure Notes None recorded. Medical Equipment None Reported. Allergies Allergen ID Allergen Name Allergen Category Reaction Reaction Severity Criticality Documentation Date Start Date Code Code System Note Provider Name and Address Organization Details Recorded Time 8755 Compazine medicatio n Not available Not available Not available 03/28/202343810 6 RxNorm BELLE LLAMAS PA-C [address] [place], [address], [facility] 3 10:12:17 2776 latex environme nt,medica tion Not available Not available Not available 03/28/2023 53270 91 RxNorm rash BELLE LLAMAS PA-C [address] [place], [address], [facility] 3 14:39:06 Medications Name Sig Start Date [...] Updated DateTime 03/28/2023 162.56 cm 31.8 kg/m2 96673.59 g 12 /min Belle Rosa [facility] 03/28/2023 14:30:37 Social History Question Answer Notes LastModified by Organizat ion Details LastModified Time Tobacco Smoking Status Never Smoker Belle pichardo [facility] 03/28/2023 14:32:08 What Is Your Level Of Alcohol Consumption? Occasional Information not available 03/28/2023 What Is Your Level Of Caffeine Consumption? Occasional Information not available 03/28/2023 What Is The Highest Grade Or Level Of School You Have Completed Or The Highest Degree You Have Received? [id number] Information not available 03/28/2023 Which Of Your [...] available 03/28 14:31:22 Medical History Condition Response Head Trauma/Injury N Depression N Lung Disease N COPD or emphysema N Spine Problems N Obstructive Sleep Apnea N Alcoholism N Autoimmune disease N Arthritis N Developmental Problems N Cancer N Stroke N Heartburn, acid reflux, GERD N Vitamin D Deficiency N Liver Disease N Headaches Y Fibromyalgia N Kidney Disease N Claustrophobia N Hospitalizations N High Blood Pressure or Hypertension N Thyroid Problems N Brain Tumors N Encephalitis N PTSD N Vitamin B12 deficiency N Heart Attack (DC) N Diabetes N Bleeding Disorder N Tuberculosis N Cerebral Palsy N Neck Problems N Back Problems N Asthma Y Epilepsy/Seizures N Bipolar Disorder N Sleep Disorder N Hepatitis N Aneurysm N Heart Disease N High Cholesterol or Hyperlipidemia N Osteoporosis N Gynecological HistoryNo gynecological history recorded. Obstetrics History GPAL:G 0 P 0 0 0 0 Past Encounters Encounter ID Performer Location Encounter Start Date Encounter Closed Date Diagnosis/Indication Diagnosis SNOMED-CT Code Diagnosis ICD10 Code Diagnosis Note [id number] Chai Goddard MD [facility] [address] [place] [address] Kristian M[place] [phone] 03/28/2023 14:21:06 04/22/2023 17:28:40 Migraine without aura 86320997 G43.009 Dystonia [id number] G24.3 Migraine with aura 72728 06 G43.109 Health Concerns Section Related Observation [...] above). When she was a student at [employer], she received biofeedback from a practitioner there which helps some. She tried acupuncture with body rupinder in [place] and in general, that seemed to help [...] for neck pain with Abdirashid Adam at [employer]. This did help with some of the [...] is a migraine trigger. Chai Goddard MD [address] [place], [place] [address] [place], [phone], [facility] 04/18/2023 19:01:52 OBGyn Episode No OBEpisode recorded.
== END 2025-01-18 08:55 | disposition home or self-care (01) ==
LOC: HO.HCS 08:15
PROVIDERS: Visit Provider Nurse Practitioner Family
DX: I48.91 Unspecified atrial fibrillation (principal); R00.2 Palpitations; F17.200 Nicotine dependence, unspecified, uncomplicated; Z09 Encounter for follow-up examination after completed treatment for conditions other than malignant neoplasm
CPT/HCPCS: 99214